=== PATIENT | female | born 1975 | race Caucasian/White ===

== ENCOUNTER 2018-04-04 13:53 | Outpatient (CLI) | payer OTHER, SELFPAY ==
[2018-04-04 14:32] LABS: Abs Immature Grans 0.18 k/cumm (0.0-0.09); Absolute Basophil Count 0.04 k/cumm (0.0-0.2); Absolute Eosinophil Count 0.17 k/cumm (0.0-0.7); Absolute Lymphocyte Count 1.46 k/cumm (1.2-3.4); Absolute Monocyte Count 0.78 k/cumm (0.11-0.7); Absolute Neutrophil Count 7.21 k/cumm (1.2-6.7); Basophils % 0.4; Eosinophils % 1.7; HCT 39.5 % (36.0-46.0); HGB 13.5 g/dL (12.0-15.5); Immature Grans % 1.8; Lymphocytes % 14.8; Mean Corp. HGB Concentration 34.2 g/dL (32.0-36.0); Mean Corpuscular Volume 90.8 fL (80-95); Mean Platelet Volume 8.5 fL (8.0-11.0); Monocytes % 7.9; Neutrophils % 73.4; Platelet Count 259 x1000/uL (130-400); RBC 4.35 m/cumm (4.00-5.20); RBC Distribution Width 13.4 % (11.7-14.6); White Blood Cell Count 9.84 k/cumm (4.4-10.8)
[2018-04-04 15:11] LABS: TSH (W/Ref FT4) 1.32 uIU/mL (0.358-3.74)
[2018-04-06 10:23] LABS: Hepatitis B Surface Ag Negative (NEGAT)
[2018-04-06 10:38] LABS: HIV-1/2 Ag & Ab Screen Negative (NEGAT)
[2018-04-06 12:26] LABS: Varicella IgG Antibody Positive
[2018-04-06 12:29] LABS: Rubella IgG Ab (UVM) Positive; Syphilis Serology (RPR) Negative (Negative)
[2018-04-06 12:39] LABS: Hepatitis C Ab w Rflx HCV PCR Negative (NEGAT)
== END 2018-04-04 14:13 ==
PROVIDERS: Visit Provider Advanced Practice Midwife
DX: Z34.93 Encounter for supervision of normal pregnancy, unspecified, third trimester (principal); Z01.84 Encounter for antibody response examination; Z11.4 Encounter for screening for human immunodeficiency virus [HIV]; Z11.59 Encounter for screening for other viral diseases
CPT/HCPCS: 36415; 86787; 86803; 86850; 86900; 86901; 87340; 87389; 84443; 85025; 86592; 86762

== ENCOUNTER 2018-04-28 00:16 | Outpatient (CLI) | payer OTHER, SELFPAY ==
--- NOTE | 2018-04-28 11:11 | DI.US_ITS ---
Many abnormalities cannot be diagnosed. A normal exam does not exclude a congenital anomaly. Radiology No. LMP: Exam Date: 04/28/18 [facility] wks days on EDC ([facility]) 05/26/18 Confirmed: HISTORY: SIZE LESS THAN DATES, GESTATIONAL DIABETES,[phone] ---- PREDICTED GESTATIONAL AGE NUMBER 36 weeks with a range of 35 week to 37 weeks. 1 Determined by___1STUS___LMP___HISTORY X Info. pertaining to fetus # PLACENTA PRESENTATION Grade I-II Cephalic__X_ Anterior__X_Posterior___ Breech____ Right Left Transverse(head right___ Fundal___Low-lying___Previa___ Transverse(head left___ Varying BIOMETRY AMNIOTIC FLUID BPD: 90 mm 36.2 weeks Normal HC: 330 mm 37.3 weeks AC: 320 mm 35.6 weeks FL: 70 mm 36 weeks AMNIOTIC FLUID INDEX >26 WK CRL: mm weeks Cisterna Magna: mm CI: RUQ:__1.77____LUQ__5.2 Cerebellum: cm EFW: 2853 grams 54 th Percentile RLQ:__1.2____LLQ___3.2____ Total:___11.3 cms Composite AGE= 36.3 wks EDC by US___05/23/18 BIOPHYSICAL PROFILE ANATOMY IDENTIFIED SCORE 0/2 Heart: 4-Chamber___Rate:BPM_140____ LVOT: RVOT: Amniotic Fluid(>2cms)____ Stomach: Kidneys: Respirations (>30 secs) Bladder: Post. Fossa: Body Flex/Extension 3 vessel cord: Ventricles: cord insertion: Lips:____ Extremity Flex/Extension spinal morphology: Nose: Total Score= Palate: NS=not seen OB ultrasound was performed utilizing third trimester protocol. Placenta is anterior with no evidence of placenta previa. There is visually a normal quantity of amniotic fluid and the JAZMIN is 11. biometry is consistent with a gestational age of 36 weeks 3 days and and EDC of 05/23/18. The estimated weight is 2853 grams. The estimated weight is at the 54th percentile for predicted gestational age on the basis of an EDC of . The fetus is in cephalic presentation. cardiac activity is identified at a rate of 140 BPM.
== END 2018-04-28 00:36 ==
PROVIDERS: Visit Provider Advanced Practice Midwife
DX: O26.843 Uterine size-date discrepancy, third trimester (principal); Z36.2 Encounter for other antenatal screening follow-up
CPT/HCPCS: 76816

== ENCOUNTER 2018-04-28 13:46 | Outpatient (CLI) | payer OTHER, SELFPAY | END 2018-04-28 14:06 | PROVIDERS: Visit Provider Advanced Practice Midwife | DX: O09.523 Supervision of elderly multigravida, third trimester (principal); Z3A.36 36 weeks gestation of pregnancy; O24.419 Gestational diabetes mellitus in pregnancy, unspecified control | CPT/HCPCS: 59025 ==

== ENCOUNTER 2018-04-28 16:14 | Outpatient (REF) | payer OTHER, SELFPAY | END 2018-04-28 16:34 | LOC: LBN 16:14 | PROVIDERS: Visit Provider Advanced Practice Midwife | DX: Z34.93 Encounter for supervision of normal pregnancy, unspecified, third trimester (principal); Z36.85 Encounter for antenatal screening for Streptococcus B | CPT/HCPCS: 87081 ==

== ENCOUNTER 2018-05-02 13:43 | Outpatient (CLI) | payer OTHER, SELFPAY | END 2018-05-02 14:03 | PROVIDERS: Visit Provider Advanced Practice Midwife | DX: O24.419 Gestational diabetes mellitus in pregnancy, unspecified control (principal); O09.523 Supervision of elderly multigravida, third trimester; Z3A.36 36 weeks gestation of pregnancy | CPT/HCPCS: 59025 ==

== ENCOUNTER 2018-05-05 13:25 | Outpatient (CLI) | payer OTHER, SELFPAY | END 2018-05-05 13:45 | PROVIDERS: Visit Provider Advanced Practice Midwife | DX: O24.419 Gestational diabetes mellitus in pregnancy, unspecified control (principal); O09.523 Supervision of elderly multigravida, third trimester; Z3A.37 37 weeks gestation of pregnancy | CPT/HCPCS: 59025 ==

== ENCOUNTER 2018-05-09 11:18 | Outpatient (CLI) | payer OTHER, SELFPAY | END 2018-05-09 11:38 | PROVIDERS: Visit Provider Advanced Practice Midwife | DX: O24.419 Gestational diabetes mellitus in pregnancy, unspecified control (principal); O09.523 Supervision of elderly multigravida, third trimester; Z3A.37 37 weeks gestation of pregnancy | CPT/HCPCS: 59025 ==

== ENCOUNTER 2018-05-12 11:44 | Outpatient (CLI) | payer OTHER, SELFPAY | END 2018-05-12 12:04 | PROVIDERS: Visit Provider Advanced Practice Midwife | DX: O24.419 Gestational diabetes mellitus in pregnancy, unspecified control (principal); O09.523 Supervision of elderly multigravida, third trimester; Z3A.38 38 weeks gestation of pregnancy | CPT/HCPCS: 59025 ==

== ENCOUNTER 2018-05-16 12:50 | Outpatient (CLI) | payer OTHER, SELFPAY | END 2018-05-16 13:10 | PROVIDERS: Visit Provider Nurse Practitioner | DX: O24.419 Gestational diabetes mellitus in pregnancy, unspecified control (principal); O09.523 Supervision of elderly multigravida, third trimester; Z3A.38 38 weeks gestation of pregnancy | CPT/HCPCS: 59025 ==

== ENCOUNTER 2018-05-18 16:00 | Inpatient (IN) | payer OTHER, SELFPAY ==
[2018-05-18 18:42] LABS: HCT 40.3 % (36.0-46.0); HGB 13.8 g/dL (12.0-15.5); Mean Corp. HGB Concentration 34.2 g/dL (32.0-36.0); Mean Corpuscular Hemoglobin 31.2 pg (27.0-33.0); Mean Platelet Volume 9.5 fL (8.0-11.0); Platelet Count 239 x1000/uL (130-400); RBC 4.43 m/cumm (4.00-5.20); RBC Distribution Width 13.6 % (11.7-14.6); White Blood Cell Count 11.73 k/cumm (4.4-10.8)
[2018-05-18] MEDS: CLINDAMYCIN 900 MG/50 ML BAG 50 MG IVPB (20:41)
[2018-05-18] MEDS: Normal Saline Flush 10 ML SYR IVP (20:44)
[2018-05-19] MEDS: CLINDAMYCIN 900 MG/50 ML BAG 50 MG IVPB (04:45)
[2018-05-19] MEDS: Normal Saline Flush 10 ML SYR IVP (04:46)
[2018-05-19] MEDS: Lactated Ringers 1,000 ML 125 ML IV (06:32)
[2018-05-20] MEDS: Ibuprofen 600 MG TAB PO (01:21)
[2018-05-20 07:53] LABS: HGB 12.5 g/dL (12.0-15.5); Mean Corp. HGB Concentration 32.9 g/dL (32.0-36.0); Mean Corpuscular Hemoglobin 30.6 pg (27.0-33.0); Mean Corpuscular Volume 93.1 fL (80-95); Mean Platelet Volume 9.4 fL (8.0-11.0); Platelet Count 221 x1000/uL (130-400); RBC 4.08 m/cumm (4.00-5.20); RBC Distribution Width 13.8 % (11.7-14.6); White Blood Cell Count 9.74 k/cumm (4.4-10.8)
== END 2018-05-21 10:05 | disposition home or self-care (01) | DRG 807 ==
PROVIDERS: Admitting Provider Advanced Practice Midwife; PCP Emergency Medicine; Visit Provider Advanced Practice Midwife
DX: O69.81X0 Labor and delivery complicated by cord around neck, without compression, not applicable or unspecified (principal); Z37.0 Single live birth; O24.420 Gestational diabetes mellitus in childbirth, diet controlled; O76 Abnormality in fetal heart rate and rhythm complicating labor and delivery; Z3A.38 38 weeks gestation of pregnancy; O99.824 Streptococcus B carrier state complicating childbirth; Z88.0 Allergy status to penicillin
CPT/HCPCS: 36415; 85027; 86850; 86900; 86901; 59200; J3490

== ENCOUNTER 2018-07-21 18:02 | Outpatient (REF) | payer OTHER, SELFPAY ==
--- NOTE | 2018-07-21 15:45 | PAPFT_PTH ---
PATIENT: Gerda Hobbs LOC: [facility] U#:[id number] AGE/SX: 43/F ROOM: RE07/21/[address]: Claudia Martinez CNM : 1975 BED: DIS: 07/21/2018 SPEC #: [id number] RECD: 07/21/18 18:13 STATUS: DENA RELance #: [id number] JEFFRY: 07/21/18 15:[address]: Claudia Martinez DEPT: [facility] Cytology RECD BY: Halley Graham ENTERED: 07/21/18 18:13 SP TYPE: PAPFT OT DR: None Tissues: 1 - CX/ENDOCX FOR PAP SMEARS Procedures: PAP THIN PREP/U[facility] Screening HPV DNA PROBE Comments: [id number]
== END 2018-07-21 18:22 ==
LOC: LBN 18:02
PROVIDERS: Visit Provider Nurse Practitioner
DX: Z12.4 Encounter for screening for malignant neoplasm of cervix (principal); Z11.51 Encounter for screening for human papillomavirus (HPV)
CPT/HCPCS: 88142; 87624

== ENCOUNTER 2021-04-14 16:10 | Emergency (ER) | payer OTHER, SELFPAY ==
[2021-04-14] VITALS (43 sets, daily range): BP systolic 105–222; BP diastolic 51–207; PULSE 85–177; RESP 0–28; TEMP 36.6; O2SAT 97–100
--- NOTE | 2021-04-14 16:00 | RT.EKG_ITS ---
APPROVED REPORT Exam: Resting ECG Reason for Exam: dizzy Patient Location: E HR:131 bpm ECG Measurements Heart Rate 131 AXIS OH 138 P 76 QRSd 117 QRS 39 QT 313 T 19 QTc 461 Conclusion Sinus tachycardia...rate> 99 Incomplete right bundle branch block...QRSd >112, terminal axis(90,270). Sinus. No STEMI. I have reviewed and interpreted ECG and agree with software generated interpretation.
--- NOTE | 2021-04-14 16:41 | NUR.NOTE ---
Nursing Note: Son asked to tell the provider that the patient cannot feel below the area of injury, when her vital signs change her B/P gets high and her heart rate increases. Usually the problem is her urinary or bowels. Kylie Medrano
--- NOTE | 2021-04-14 16:52 | W.ED.GENAD ---
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 04/14/21 16:25 Respiratory Effort Non-Labored 04/14/21 16:28 Blood Pressure 142/85 H 04/14/21 16:25 Blood Pressure Position Supine 04/14/21 16:25 Pulse Oximetry 99 04/14/21 16:25 Oxygen Delivery Method Room Air 04/14/21 16:25 Oxygen Flow Rate 0 04/14/21 16:25 Pain Level 0 04/14/21 16:25 Lab/Test Results Lab/Test Results: 04/14/21 16:28 Blood Blood Culture - Pending 04/14/21 16:28 Blood Blood Culture - Pending
--- NOTE | 2021-04-14 17:00 | DI.CT_ITS ---
Exam(s) CT BRAIN NECK CTA EXAM: CT BRAIN NECK CTA CLINICAL HISTORY: dizziness, hypertensive, r/o acute cva. TECHNIQUE: Imaging Protocol: Axial CT angiography was performed with multi-slice acquisition and mu lti-planar and/or 3D reconstructions. CONTRAST MATERIAL: Intravenous: Omnipaque 350 Contrast volume:structured data in ml COMPARISON: No exams were available for comparison FINDINGS: CTA Neck W: Aortic arch anatomy: There is no evidence of significant stenosis at the origin of the great vessels off the aortic arch. Both common carotid arteries ascend with normal luminal diameters and there is no evidence of significant atherosclerotic disease nor narrowing at the carotid bifurcations and prox imal internal carotid arteries on both sides and both internal carotid arteries exhibit normal diamet ers in the upper neck-skull base. Posterior circulation: Both vertebral arteries originated conventional fashion off of the subclavian arteries and there is n o evidence of significant stenosis at their origins nor within the subclavian arteries. Both vertebr al arteries ascend normal equal luminal diameters in the foramen transversarium, with no evidence of intraluminal thrombus nor dissection of these vessels evident. At the skull base both vertebral randell weston are somewhat thin but both contribute to the formation of the basilar artery. CTA Brain W: Anterior circulation: Both internal carotid arteries are patent in the skull base-carotid canals as well as within the cave rnous sinuses and there is no significant stenosis at the supraclinoid aspects. A1 segments are palomino nt as are the anterior cerebral arteries. There is no evidence of aneurysm at the level of the anter ior communicating artery. Both middle cerebral arteries appear patent. Posterior circulation: Basilar artery is formed by both vertebral arteries at the skull base. Distally gives off superior c erebellar arteries and above this level terminates as posterior cerebral arteries. These appear palomino nt. CT BRAIN: There is no evidence of intracranial hemorrhage, mass effect, or shift of midline structures. There are no extra-axial fluid collections. Ventricles are not enlarged or shifted. There are no ring enh ancing lesions in the brain and no abnormal meningeal enhancement. Mild mucosal thickening is noted in the right sphenoid sinus. Remainder of the paranasal sinuses are clear. IMPRESSION: 1. No evidence of significant stenosis nor dissection of the carotid and vertebral arteries within th e neck 2. Patent intracranial arteries. No evidence of obvious significant stenosis nor occlusion of the i ntracranial arteries and no aneurysms evident. 3. No ring enhancing lesions in the brain and no abnormal meningeal enhancement. Some mucosal thickening in the right sphenoid sinus is noted. RADIATION DOSE DELIVERED: 2,037.71mGy.cm Total DLP DATA REPOSITORY: All CT scans at this facility are submitted to the National Radiology Data Registry (NRDR) Dose Index Registry (DIR) with the [employer] (ACR). RADIATION OPTIMIZATION: All CT scans at this facility use at least one of these dose optimization te chniques: automated exposure control; mA and/or kV adjustment per patient size (includes targeted exa ms where dose is matched to clinical indication); or iterative reconstruction.
[2021-04-14 17:12] LABS: Lactate 1.5 mmol/L (0.6-1.4)
[2021-04-14 17:13] LABS: Absolute Basophil Count 0.06 10^3/uL (0.0-0.2); Absolute Eosinophil Count 0.22 10^3/uL (0.0-0.7); Absolute Lymphocyte Count 1.63 10^3/uL (1.2-3.4); Absolute Monocyte Count 0.74 10^3/uL (0.1-0.8); Absolute Neutrophil Count 6.33 10^3/uL (1.2-6.7); Basophils % 0.7; Eosinophils % 2.4; HCT 40.4 % (36.0-46.0); Immature Grans % 1.1; MCH 30.4 pg (27.0-33.0); MCHC 32.2 % (32.0-36.0); MCV 94.4 fL (80-95); MPV 8.5 fL (8.0-11.0); Monocytes % 8.1; Neutrophils % 69.7; Nucleated RBC 0 %; Platelet Count 281 10^3/uL (130-400); RBC 4.28 10^6/uL (3.93-5.22); RDW 12.9 % (11.7-14.6); RDW-SD 44.9 fL; WBC 9.08 10^3/uL (4.4-10.8)
[2021-04-14 17:32] LABS: ALT 78 U/L (14-59); AST 26 U/L (15-37); Albumin 4.1 g/dL (3.4-5.0); Alkaline Phosphatase 98 U/L (46-116); Anion Gap 7.2 mmol/L (3-11); BUN 7 mg/dL (7-18); Bilirubin, Total 0.2 mg/dL (0.2-1.0); CO2 30.8 mmol/L (21.0-32.0); CREATININE 0.5 mg/dL (0.55-1.02); Calcium 9.2 mg/dL (8.5-10.1); Chloride 105 mmol/L (98-107); Glucose 114 mg/dL (74-106); Magnesium 1.9 mg/dL (1.8-2.4); Potassium 3.7 mmol/L (3.5-5.1); Sodium 143 mmol/L (136-145); Total Protein 7.9 g/dL (6.4-8.2)
[2021-04-14 17:35] LABS: Troponin I < 0.05 ng/mL (<0.06)
[2021-04-14] MEDS: Normal Saline 1,000 ML 1000 ML IV ×2 (18:00→20:01)
--- NOTE | 2021-04-14 18:00 | DI.CT_ITS ---
Exam(s) CT CHEST PE ABD PELVIS W EXAM: CT CHEST PE ABD PELVIS W CLINICAL HISTORY: dizziness, tachycardia, paraplegic. TECHNIQUE: Imaging Protocol: Axial CT angiography was performed with multi-slice acquisition and m ulti-planar and/or 3D reconstructions. CONTRAST MATERIAL: Intravenous: Omnipaque 350 Contrast volume:100 ml Oral: None COMPARISON: CT CT BRAIN NECK CTA from 04/14/2021 FINDINGS: CHEST: PULMONARY ARTERIES: There are no intra-arterial filling defects to suggest the presence of acute pulm onary emboli. LUNGS: Mild infiltrate left lower lobe posterior basal segment.. There are no pleural effusions. MEDIASTINUM: There is no hilar nor mediastinal adenopathy. CARDIAC: Heart size is normal. There is no pericardial effusion. There is no significant shift of t he interventricular septum.Caliber of the thoracic aorta is within normal limits. OSSEOUS: Multilevel fusion hardware evident. This extends from T3 T8, inclusive. There is a almas dolly deformity of T6 noted. Rods are secured by a multilevel bilateral intrapedicular screws.. ABDOMEN: There is no ascites. LIVER: Liver is hypodense implying steatosis. There no discrete focal hepatic lesions identified. GALLBLADDER/BILIARY: No obvious gallbladder pathology. CBD is not dilated. PANCREAS: No evidence of pancreatic mass nor dilatation of the pancreatic duct. SPLEEN: Spleen size slightly prominent. No intrasplenic masses splenic and portal veins are patent. ADRENALS: There are no significant adrenal masses. KIDNEYS:There is a benign cyst in the lateral cortex of the right kidney noted. This measures 12 x 1 0 millimeters. No calculi nor hydronephrosis. No solid renal masses. ABDOMINAL AORTA: Abdominal aorta is not enlarged. LYMPH NODES: There is no retroperitoneal or para-aortic adenopathy. ABDOMINAL WALL/GI: No evidence of significant anterior abdominal wall hernia. No bowel obstruction. PELVIS: LYMPH NODES: There is no intrapelvic nor inguinal adenopathy. GI: No evidence of appendicitis.No evidence of sigmoid diverticulitis. URINARY BLADDER: Contains Snow catheter REPRODUCTIVE: Uterus and adnexal regions appear age-appropriate. No free fluid. OSSEOUS: No significant osseous lesions. IMPRESSION: 1. No evidence of acute pulmonary emboli nor pulmonary infarction. 2. There is significant infiltrate in the left lower lobe posterior and lateral basal segments, pleur al based. No pleural effusions. Milder increased markings are noted in the basal segments of the ri ght lung. Also no right pleural effusion. No intrathoracic adenopathy. 3. Fusion rods T3-T8, inclusive. Compression deformity T6 noted. 4. Hepatic steatosis. Mild splenomegaly. 5. Snow catheter in the urinary bladder. No abnormal adnexal masses. No free fluid in the pelvis. RADIATION DOSE DELIVERED: 1,512.98mGy.cm Total DLP DATA REPOSITORY: All CT scans at this facility are submitted to the National Radiology Data Registry (NRDR) Dose Index Registry (DIR) with the [employer] (ACR). RADIATION OPTIMIZATION: All CT scans at this facility use at least one of these dose optimization te chniques: automated exposure control; mA and/or kV adjustment per patient size (includes targeted exa ms where dose is matched to clinical indication); or iterative reconstruction.
[2021-04-14 18:08] LABS: Bilirubin Negative (Negative); Blood Trace-intact (Negative); Clarity Sl Cloudy (Clear); Glucose Negative (Negative); Ketones Negative (Negative); Leukocyte Esterase Moderate (Negative); Nitrite Positive (Negative); Urobilinogen 0.2 EU/dL (Up TO 0.2); pH 6.5 (5-8)
[2021-04-14 18:17] LABS: Bacteria Packed HPF (Negative); C & S Indicated? Yes; Crystals Negative HPF (Negative); Epithelial Cells Few HPF (Negative); Mucus Negative (Negative); RBC 0-2 HPF (0-2); WBC >50 HPF (0-5)
[2021-04-14] MEDS: Omnipaque 350 MG/ML 100 ML BTL IJ ×2 (19:01→19:02)
--- NOTE | 2021-04-14 19:37 | DI.VRAD_ITS ---
PROCEDURE INFORMATION: Exam: CT Angiography Head With Contrast, Arteriography Exam date and time: 04/14/2021 5:13 PM Age: 46 years old Clinical indication: Dizziness and giddiness and other: Hypertensive; Prior surgery; Patient HX: Dizziness, hypertensive; Additional info: R/O acute CVA TECHNIQUE: Imaging protocol: Computed tomography angiography of the head with contrast. Exam focused on the arteries. 3D rendering (Not supervised by radiologist): MIP and/or 3D reconstructed images were created by the technologist. COMPARISON: No relevant prior studies available. FINDINGS: ANTERIOR CIRCULATION: Right internal carotid artery: Intracranial segment is patent with no significant stenosis. No aneurysm. Right middle cerebral artery: No occlusion or significant stenosis. No aneurysm. Right anterior cerebral artery: No occlusion or significant stenosis. No aneurysm. Left internal carotid artery: Intracranial segment is patent with no significant stenosis. No aneurysm. Left middle cerebral artery: No occlusion or significant stenosis. No aneurysm. Left anterior cerebral artery: No occlusion or significant stenosis. No aneurysm. POSTERIOR CIRCULATION: Right vertebral artery: No occlusion or significant stenosis. No aneurysm. Left vertebral artery: No occlusion or significant stenosis. No aneurysm. Basilar artery: No occlusion or significant stenosis. No aneurysm. Right posterior cerebral artery: No occlusion or significant stenosis. No aneurysm. Left posterior cerebral artery: No occlusion or significant stenosis. No aneurysm. Brain: The brain parenchyma is normal appearance. No intracranial hemorrhage. No midline shift. No loss of rivera-white differentiation to suggest an acute infarct. Cerebral ventricles: No hydrocephalus. Bones/joints: Unremarkable. No acute fracture. Mastoid air cells: The mastoid air cells are well aerated. Soft tissues: Unremarkable. Paranasal sinuses: A small fluid level is seen within the right sphenoid sinus. The remaining paranasal sinuses are well aerated. Other findings: The images are mildly motion degraded. IMPRESSION: 1. Mildly motion degraded exam. 2. No gross evidence for large vessel stenosis or occlusion within the intracranial arteries, given limitations of motion degradation. 3. No evidence for and acute intracranial process. 4. Mild right sphenoid sinus disease. PROCEDURE INFORMATION: Exam: CT Angiography Neck With Contrast Exam date and time: 04/14/2021 5:13 PM Age: 46 years old Clinical indication: Dizziness and giddiness and other: Hypertensive; Prior surgery; Patient HX: Dizziness, hypertensive; Additional info: R/O acute CVA TECHNIQUE: Imaging protocol: Computed tomography angiography of the neck with contrast. 3D rendering (Not supervised by radiologist): MIP and/or 3D reconstructed images were created by the technologist. COMPARISON: No relevant prior studies available. FINDINGS: Right common carotid artery: No stenosis. No dissection or occlusion. Right internal carotid artery: No stenosis of the extracranial segment. No dissection or occlusion. Right external carotid artery: No occlusion or stenosis of the origin. Left common carotid artery: No stenosis. No dissection or occlusion. Left internal carotid artery: No stenosis of the extracranial segment. No dissection or occlusion. Left external carotid artery: No occlusion or stenosis of the origin. Right vertebral artery: No stenosis. No dissection or occlusion. Left vertebral artery: No stenosis. No dissection or occlusion. Aorta: The great vessels opacify normally with contrast without aneurysm, dissection or occlusion. Soft tissues: Normal. No significant soft tissue swelling. Bones/joints: No acute fracture. Postoperative changes of posterior fusion are partially imaged within the upper thoracic spine at T3 through T5. The entire postoperative changes are not within the imaged field of view. Lungs: The lung apices are well aerated. IMPRESSION: No stenosis, dissection or occlusion within the extracranial arteries. REFERENCES: NASCET CRITERIA. The degree of internal carotid artery stenosis is based on NASCET criteria. Normal is no stenosis. Mild is less than 50% stenosis. Moderate is 50-69% stenosis. Severe is 70% to 99% stenosis. Total occlusion is no detectable patent lumen. Dictated and Authenticated by: Carlene Brunson MD. Ordering:KHADAR Medrano MD
--- NOTE | 2021-04-14 19:50 | DI.VRAD_ITS ---
PROCEDURE INFORMATION: Exam: CTA Chest With Contrast Exam date and time: 04/14/2021 6:46 PM Age: 46 years old Clinical indication: Prior surgery; Patient HX: Dizziness, tachycardia, paraplegic; Additional info: R/O pneumonia, pe TECHNIQUE: Imaging protocol: Computed tomographic angiography of the chest with contrast. 3D rendering (Not supervised by radiologist): MIP and/or 3D reconstructed images were created by the technologist. COMPARISON: [facility] OB JAZMIN weight 04/28/2018 8:22 PM FINDINGS: Pulmonary arteries: The pulmonary arteries opacify normally with contrast without evidence for a pulmonary embolus. Aorta: The thoracic aorta opacifies normally with contrast without aneurysm or dissection. Lungs: Minimal atelectasis or infiltrate within the lower lobes. Superimposed bandlike atelectasis or scarring within the bilateral lower lobes. No pleural effusion or pneumothorax. Pleural spaces: See Lungs finding. Heart: The heart is upper limits of normal in size. No pericardial effusion. No evidence for right heart strain. RV/LV ratio 0.7. Mediastinal space: The esophagus is slightly dilated and patulous. Mild wall thickening within the lower esophagus. Lymph nodes: Unremarkable. No enlarged lymph nodes. Bones/joints: Postoperative changes of posterior fusion are seen beginning at T3 through T8 with posterior rods and pedicle screws. A chronic T6 compression fracture is seen. Soft tissues: Unremarkable. Other findings: The images are slightly motion degraded. IMPRESSION: 1. No evidence for a pulmonary embolism. No thoracic aortic aneurysm or dissection. No evidence for right heart strain. 2. Mild atelectasis or infiltrate within the lower lobes. 3. Probable distal esophagitis. PROCEDURE INFORMATION: Exam: CT Abdomen And Pelvis With Contrast Exam date and time: 04/14/2021 6:46 PM Age: 46 years old Clinical indication: Prior surgery; Patient HX: Dizziness, tachycardia, paraplegic; Additional info: R/O pneumonia, pe TECHNIQUE: Imaging protocol: Computed tomography of the abdomen and pelvis with contrast. COMPARISON: [facility] JAZ[facility] weight 04/28/2018 8:22 PM FINDINGS: Tubes, catheters and devices: A catheter is seen within the urinary bladder. Liver: The liver is mildly enlarged and fatty infiltrated. Gallbladder and bile ducts: The gallbladder is contracted but otherwise normal appearance. Pancreas: The pancreas is normal appearance. Spleen: The spleen is upper limits of normal in size. Adrenal glands: The bilateral adrenal glands are normal appearance. Kidneys and ureters: A 10 mm cyst is seen within the interpolar region of the right kidney. The bilateral kidneys are otherwise normal appearance. No hydroureteronephrosis. Stomach and bowel: The stomach is normal appearance. The small bowel is nondilated with mild fecalization of the distal small bowel. A moderate amount of stool and air is seen throughout the colon to the level of the rectum. No bowel obstruction. Appendix: No evidence of appendicitis. Intraperitoneal space: No free fluid, free air or abscess. Mild stranding is seen within the greater omentum without a discrete nodule. Vasculature: The abdominal aorta is normal in caliber without aneurysm. Lymph nodes: No lymphadenopathy within the abdomen and pelvis. Urinary bladder: The urinary bladder contains a small bleb of air. The urinary bladder is otherwise normal appearance. Reproductive: The uterus is normal appearance. No adnexal mass. Bones/joints: Mild lumbar spondylosis. No acute fracture. Soft tissues: Unremarkable. IMPRESSION: 1. Mild stranding within the greater omentum without a discrete nodule. This may be secondary to underlying liver disease. Consider a follow-up CT study in 3-6 months to ensure stability. 2. Constipation without bowel obstruction. 3. Mildly enlarged, fatty infiltrated liver. 4. Simple appearing right renal cyst. Dictated and Authenticated by: Carlene Brunson MD. Ordering:KHADAR Medrano MD
[2021-04-14] MEDS: levoFLOXacin 500 MG, levoFLOXacin 250 MG 750 MG PO (20:50)
== END 2021-04-14 21:35 | disposition home or self-care (01) ==
PROVIDERS: Emergency Provider Physician Assistant
DX: N39.0 Urinary tract infection, site not specified (principal); R05.1 Acute cough; R42 Dizziness and giddiness; R91.8 Other nonspecific abnormal finding of lung field; G82.20 Paraplegia, unspecified; Z99.3 Dependence on wheelchair
CPT/HCPCS: 36415; 70496; 70498; 71275; 74177; 80053; 87040; 87077; 93005; 96360; 96361; 99285; 81003; 81015; 83605; 83735; 84484; 85025; 87086; 87186; 93010; J3490

== ENCOUNTER 2021-05-15 18:04 | Outpatient (REF) | payer OTHER, SELFPAY | END 2021-05-15 18:05 | disposition home or self-care (01) | LOC: LBN 18:04 | PROVIDERS: Visit Provider Urology | DX: N31.9 Neuromuscular dysfunction of bladder, unspecified (principal); R82.998 Other abnormal findings in urine | CPT/HCPCS: 87077; 87086; 87186 ==

== ENCOUNTER 2021-10-21 10:13 | Outpatient (REF) | payer OTHER, SELFPAY ==
--- NOTE | 2021-10-21 09:30 | PAPFT_PTH ---
PATIENT: Gerda Hobbs LOC: [facility] U#:[id number] AGE/SX: 46/F ROOM: RE10/21/[address]: Samra Holm APRN : 1975 BED: DIS: 10/21/2021 SPEC #: [id number] RECD: 10/22/21 12:50 STATUS: DENA PANDEY #: [id number] JEFFRY: 10/21/21 09:[address]: Samra Holm DEPT: [facility] Cytology RECD BY: Halley Graham Tissues: 1 - CX/ENDOCX FOR PAP SMEARS Procedures: PAP THIN PREP/UVM Screening HPV DNA PROBE Comments: [id number]
== END 2021-10-21 10:14 | disposition home or self-care (01) ==
LOC: LBN 10:13
DX: Z12.4 Encounter for screening for malignant neoplasm of cervix (principal); Z11.51 Encounter for screening for human papillomavirus (HPV)
CPT/HCPCS: 88142; 87624

== ENCOUNTER 2021-12-28 17:22 | Emergency (ER) | payer OTHER, MEDICAID, SELFPAY ==
[2021-12-28 17:29] VITALS: BP 115/73; PULSE 126; RESP 16; TEMP 37.1; O2SAT 96
--- OUTSIDE RECORDS SUMMARY | 2021-12-28 17:36 | XMS_ITS | Encounter Summary ---
:1975 Author Organization [facility] [place] [address] Care Team Providers Name Role Phone None Primary Care Provider Unavailable Encounter Details Date Type Department Care Team Description 10/17/2021 Telephone Urology at [facility] Julita Hollingsworth, [facility] [place] [address] [facility] [phone] UROLOGY DEPT. [place], [place] [address] (Wo rk) Social History Tobacco Use Types Packs/Day Years Used Date Never Smoker Smokeless Tobacco: Never Used Sex Assigned at Date Recorded Not on file documented as of this encounter Miscellaneous Notes Telephone Encounter - Teresa York - 10/17/2021 8:43 AM EDT PHONE: [phone] Pt calls stating that she needed prior auth for the myrbetriq and her PCP attempted to get it but itwas declined so her primary switched her to solifenocin (sp). She's wondering what Dr. Hollingsworth wouldsuggest? If she thinks myrbetriq would be best she can submit a letter of medical necessity to over t urn the medical decision. OR there are some other generic medications that her insurance suggested -gemtisa or toviaz. The number for the prior auth is [phone] Pt has changed pharmacy to [facility] in [place], [place] Can leave a message on the pt's phone number if she doesn't answer. documented in this encounter Plan of Treatment Not on filedocumented as of this encounter Visit Diagnoses Not on filedocumented in this encounter Care Teams Gambling Floor Supervisor Relationship Specialty Start Date End Date None PCP - General 02/11/20 None documented as of this encounter
--- OUTSIDE RECORDS SUMMARY | 2021-12-28 17:36 | XMS_ITS | Encounter Summary ---
:1975 Author Organization [facility] [place] [address] Care Team Providers Name Role Phone None Primary Care Provider Unavailable Encounter Details Date Type Department Care Team Description 02/11/2020 [facility] [place] [address] [facility] [phone] [place], [place] [address] (Wo rk) Social History Tobacco Use Types Packs/Day Years Used Date Never Assessed Sex Assigned at Date Recorded Not on file documented as of this encounter Medications at Time of Discharge Medication Sig Dispensed Refills Start Date End Date EPINEPHrine 0.3 mg/0.3 mL Inject into the 0 04/04 Auto-Injector muscle. documented as of this encounter Plan of Treatment Not on filedocumented as of this encounter Visit Diagnoses Not on filedocumented in this encounter Care Teams Loom Setter Fourdrinier Relationship Specialty Start Date End Date None PCP - General 02/11/20 None documented as of this encounter
--- OUTSIDE RECORDS SUMMARY | 2021-12-28 17:36 | XMS_ITS | Encounter Summary ---
:1975 Author Organization [facility] Address [address] [address] Care Team Providers Name Role Phone None Primary Care Provider Unavailable Encounter Details Date Type Department Care Team Description 04/11/2021 Telephone Urology at [facility] Julita Hollingsworth, [facility] [place] [address] [facility] [phone] UROLOG[address] DEPT. [place], [place] [address] (Wo rk) Social History Tobacco Use Types Packs/Day Years Used Date Never Smoker Sex Assigned at Date Recorded Not on file documented as of this encounter Miscellaneous Notes Telephone Encounter - Nabor Mittal - 04/11/2021 12:37 PM EDT Patient calling, wants to know if it is possible to get botox set up prior to having the UDS since the testing is going out so far. She is also wondering if we can send a prescription of methenamine hippurate 1g twice a day to [facility] in [facility]. PHONE: [phone] documented in this encounter Plan of Treatment Not on filedocumented as of this encounter Visit Diagnoses Not on filedocumented in this encounter Care Teams Copper Flotation Operator Relationship Specialty Start Date End Date None PCP - General 02/11/20 None documented as of this encounter
--- OUTSIDE RECORDS SUMMARY | 2021-12-28 17:36 | XMS_ITS | Encounter Summary ---
:1975 Author Organization [facility] [place] [address] Care Team Providers Name Role Phone None Primary Care Provider Unavailable Encounter Details Date Type Department Care Team Description 11/27/2021 Refill Urology at [facility] [place] [place] Julita Hollingsworth MD [facility] [place] [address] UROLOGY DEPT. [phone] [place], [place] [address] (Wo rk) Social History Tobacco Use Types Packs/Day Years Used Date Never Smoker Smokeless Tobacco: Never Used Sex Assigned at Date Recorded Not on file documented as of this encounter Miscellaneous Notes Addendum Note - Esperanza Marley LPN - 12/10/2021 1:52 PM EDT Addended by: ESPERANZA MARLEY on: 12/10/2021 01:52 PM Modules accepted: Orders Telephone Encounter - Esperanza Marley LPN - 12/10/2021 1:50 PM EDT PA for mirabegron denied, spoke with patient who is agreeable to try Gemtesa, which is on patients formulary. Will pend order and forward to Dr. Hollingsworth. Telephone Encounter - Esperanza Marley LPN - 12/09/2021 2:03 PM EDT Prior authorization for mirabegron is pending appeal. Patient is currently on oxybutynin which is not effectively controlling symptoms, patients primary care physician added solifenicin to the prescribed oxybutnynin because mirabegron was not covered by her insurance, the solfenacin was not effective,patient is currently experiencing worsening incontinence as she has only been taking the oxybutynin.Will follow up with patient once appeal defeminization is finalized. Patient notified. Telephone Encounter - Nabor Mittal - 12/09/2021 9:35 AM EDT Patient calling again, looking to get an update as to what is going on and if she can get the letterof necessity for the mirabegron so her insurance will cover it. PHONE: [phone] Telephone Encounter - Nabor Mittal - 11/27/2021 8:53 AM EDT Patient calling, looking to see if we can just go right to the letter of necessity for the mirabegron as they did a prior auth from her regular doctor and it was denied a few weeks ago. PHONE: [phone] documented in this encounter Plan of Treatment Not on filedocumented as of this encounter Visit Diagnoses Not on filedocumented in this encounter Care Teams Stretcher Leveler Operator Helper Relationship Specialty Start Date End Date None PCP - General 02/11/20 None documented as of this encounter
--- OUTSIDE RECORDS SUMMARY | 2021-12-28 17:36 | XMS_ITS | Encounter Summary ---
:1975 Author Organization [facility] [place] [address] Care Team Providers Name Role Phone None Primary Care Provider Unavailable Encounter Details Date Type Department Care Team Description 04/11/2021 Orders Only Urology [place] [facility] [place]ita Hollingsworth Neurogenic bladder [facility] MD Christiana [facility] [place] [address] UROLOGY DEPT. [phone] [place], [place] [address] (Wo rk) Social History Tobacco Use Types Packs/Day Years Used Date Never Smoker Sex Assigned at Date Recorded Not on file documented as of this encounter Progress Notes Julita Hollingsworth MD - 04/11/2021 5:11 PM EDT Patient called with questions about if she did have Botox before her urodynamics. She has a neurogenic bladder and had wanted to get a baseline study on her. She did have a prior study done at [facility] when her Snow catheter was still in place. Unfortunately she is booked out to July for her urodynamics. She is increasingly bothered by her incontinence between her cathing. I have told her I willgo ahead and book her for Botox. Ideally I would like to do her in the [facility]. She is a paraplegic so hopefully this will not be an issue. She will need 200 units of Botox. We will leave her booked for her urodynamics in July as planned. I have also sent a renewal in for her methenamine. documented in this encounter Plan of Treatment Not on filedocumented as of this encounter Visit Diagnoses Diagnosis Neurogenic bladder Neurogenic bladder, NOS documented in this encounter Care Teams Saw Tailer Relationship Specialty Start Date End Date None PCP - General 02/11/20 None documented as of this encounter
--- OUTSIDE RECORDS SUMMARY | 2021-12-28 17:36 | XMS_ITS | Encounter Summary ---
:1975 Author Organization [facility] Address [address] [place] [address] Care Team Providers Name Role Phone None Primary Care Provider Unavailable Encounter Details Date Type Department Care Team Description 11/19/2021 Telephone Urology at [place] Julita Hollingsworth, [facility] [place] [address] [facility] [phone] UROLOGY DEPT. [place], [place] [address] (Wo rk) Social History Tobacco Use Types Packs/Day Years Used Date Never Smoker Smokeless Tobacco: Never Used Sex Assigned at Date Recorded Not on file documented as of this encounter Miscellaneous Notes Telephone Encounter - Esperanza Marley LPN - 11/25/2021 12:39 PM EDT Prior authorization request submitted for mirabegron, determination pending. Telephone Encounter - Esperanza Marley LPN - 11/19/2021 11:45 AM EDT Per last office visit and UDS with Dr. Hollingsworth, the plan was to continue the oxybutynin and mirabegron, patient called previously stating that she switched pharmacies to [facility], will renew RX and initiate prior authorization. Telephone Encounter - Ade Vega - 11/19/2021 10:38 AM EDT Patient calling again, says she is having really bad incontinence and she would like to discuss going back on myrbetric but she would need a letter written by Dr. Hollingsworth stating it's a medical necessity for it to be covered by her insurance. PHONE: [phone] documented in this encounter Plan of Treatment Not on filedocumented as of this encounter Visit Diagnoses Not on filedocumented in this encounter Care Teams Map Clerk Relationship Specialty Start Date End Date None PCP - General 02/11/20 None documented as of this encounter
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
--- OUTSIDE RECORDS SUMMARY | 2021-12-28 17:36 | XMS_ITS | Encounter Summary ---
:1975 Author Organization [facility] [place] [address] Care Team Providers Name Role Phone None Primary Care Provider Unavailable Encounter Details Date Type Department Care Team Description 07/15/2021 Procedure visit Urology at [facility] Neurogenic bladder [facility] [place] [address] Social History Tobacco Use Types Packs/Day Years Used Date Never Smoker Smokeless Tobacco: Never Used Sex Assigned at Date Recorded Not on file documented as of this encounter Last Filed Vital Signs Vital Sign Reading Time Taken Comments Blood Pressure 116/63 07/15/2021 11:21 AM EST Pulse 82 07/15/2021 11:21 AM EST Temperature - - Respiratory Rate - - Oxygen Saturation - - Inhaled Oxygen Concentration - - Weight - - Height - - Body Mass Index - - documented in this encounter Progress Notes Julita Hollingsworth MD - 07/15/2021 11:00 AM EST Gerda Morales IS A female 46 y.o. who is here for Urodynamics. HPI Ms. Morales has a history of a neurogenic bladder . This is her first study here. Objective: Well looking female in no acute distress. PVR: 350 cc when the uds catheter was inserted. Dipstick Urinalysis: Negative. Urodynamics/Injection of Contrast The patient was filled at a rate of 50 mL/min via a 10 Fr urodynamic catheter with an abdominal catheter in place and EMG patches. Contrast was used 250 ml of iohexol (omnipaque) 350mg/ml in 750 of sterile water. In this patient we used: Solution Ml of contrast 1000 250 500 125 - bill for 130 ml 400 100 300 75 - bill for 65 ml 250 62.5 -bill for 60 ml 200 50 100 25 50 12.5 Cystogram: MGy: 6.03; fluoro time: 0.3 minutes. Indications: neurogenic bladder Findings: Adequate views of the bladder at rest, during filing, at capacity and after emptying were obtained with floroscopy. Imaging revealed a smooth bladder with the bladder neck closed at rest. There was not reflux. Interpretation: normal cystogram I supervised the above listed procedure and interpreted the findings. Brush Machine Setter imaging was saved. Complex Cystometrogram: The detrusor (bladder minus abdominal) pressure was stable to 367 ml. The pdet gabriel to 52 cm H2O andshe leaked. Compliance was normall. Filling sensation was normal. She was then emptied for 475 ml. Bladder capacity: >500 ml. VLPP:not done Pressure -Flow: not done EMG: The pelvic floor was appropriately relaxed during filling I was present for the pertinent portions of the urodynamics. I reviewed the results with the patientfollowing the procedure. I reviewed and edited the final report which is in the chart. Impression: Neurogenic bladder - stable to 475 ml . Plan: continue oxybutynin and mirabegron Continue to do CIC to keep bladder volume under 500 ml. documented in this encounter Plan of Treatment Not on filedocumented as of this encounter Procedures Procedure Name Priority Date/Time Associated Diagnosis Comme nts UROLOGY SCAN 07/15/2021 12:00 AM EST documented in this encounter Results SCAN DOC: UROLOGY (07/15/2021 12:00 AM EST) Narrative This result has an attachment that is no t available. Unknown MEDIA MGR SCAN EXT ORDR/RSLT documented in this encounter Visit Diagnoses Diagnosis Neurogenic bladder Neurogenic bladder, NOS documented in this encounter Administered Medications Inactive Administered Medications - up to 3 most recent administrations Medication Order MAR Action Action Date Dose Rate Site iohexoL (Omnipaque) (350 mg/mL) Given 07/15/2021 11:00 AM EST 10 0 mLs solution 100 mL 100 mL, Other, ONCE PRN, 1 dose, Starting on Wed07/15/21 at 1840, Until Wed07/15/21 at 1100, Per Protocol, Warning Vesicant/Irritant Medication , Routine documented in this encounter Care Teams Manager Hospitality Relationship Specialty Start Date End Date None PCP - General 02/11/20 None documented as of this encounter
--- OUTSIDE RECORDS SUMMARY | 2021-12-28 17:36 | XMS_ITS | Encounter Summary ---
:1975 Author Organization [facility] [place] [address] Care Team Providers Name Role Phone None Primary Care Provider Unavailable Encounter Details Date Type Department Care Team Description 05/17/2021 Telephone Urology Marv Chacko MD [facility] [place] [address] UROLOGY DEPT [phone] [place], [place] [address] (Wo rk) Social History Tobacco Use Types Packs/Day Years Used Date Never Smoker Sex Assigned at Date Recorded Not on file documented as of this encounter Miscellaneous Notes Telephone Encounter - Marv Chacko MD - 05/17/2021 10:[address] [facility]. UCx results will not be available until Wednesday morning per their labor relations manager. Marv Chacko MD, MPH Urology, PGY-5 Personal Pager #[phone] 05/17/2021 documented in this encounter Plan of Treatment Not on filedocumented as of this encounter Visit Diagnoses Not on filedocumented in this encounter Care Teams Helmet Binder Relationship Specialty Start Date End Date None PCP - General 02/11/20 None documented as of this encounter
--- OUTSIDE RECORDS SUMMARY | 2021-12-28 17:37 | XMS_ITS | Encounter Summary ---
:1975 Author Organization [facility] Address [address] [place] [address] Care Team Providers Name Role Phone Pcp, No Unavailable Unavailable Telly Dietrich DO Primary Care Provider Unavailable Reason for Visit Reason Onset Date Comments Management Of Care 05/16/2020 Encounter Details Date Type Department Care Team Description 05/16/2020 Telephone [facility] NE[facility]O SP [address] [facility] Masoud Miller, Management Of Care [address] [address] 1[address] Floor [phone] [place] [address] (Wo rk) Social History Tobacco Use Types Packs/Day Years Used Date Never Smoker Smokeless Tobacco: Never Used Alcohol Use Standard Drinks/Week Comments Not Currently 0 (1 standard drink = 0.6 oz pure alcoho l) Substance Use Types Use/Week Comments Never Sex Assigned at Date Recorded Not on file Job Start Date Occupation Industry Not on file Not on file Not on file documented as of this encounter Miscellaneous Notes Telephone Encounter - Kinza Leach RN - 05/17/2020 3:44 PM EST Spoke with the patient's mother, Jena, as the patient was sleeping. Reviewed the message below with her and she did write this down to be able to relay to the patient. Advised her to have the patient call the office with any other questions or concerns. Telephone Encounter - Masoud Miller MD - 05/17/2020 3:15 PM EST Please let Gerda know it is okay to take off cervical collar. If she gets a lot of neck fatigue or pain, she can wean the collar. This would simply be putting thecollar back for an hour on if she is getting a lot of neck pain, or having trouble holding the head up. elephone Encounter - Jose F Thomas MD - 05/17/2020 12:58 PM EST Those look fine OK to D/C collar. elephone Encounter - Masoud Miller MD - 05/16/2020 5:35 PM EST Nico, please review. Ms. Morales had her follow-up cervical spine x-rays today, no segmental motion or instability on flexion and extension views. Can you review and let me know if I can tell her to discontinue the cervical collar? documented in this encounter Plan of Treatment Not on filedocumented as of this encounter Visit Diagnoses Not on filedocumented in this encounter Care Teams Payment Specialist Relationship Specialty Start Date End Date Pcp, No PCP - Generic [facility] 02/10/20 PCP Telly Dietrich DO PCP - General Family Medicine 04/22/20 documented as of this encounter
--- OUTSIDE RECORDS SUMMARY | 2021-12-28 17:37 | XMS_ITS | Encounter Summary ---
:1975 Author Organization [facility] Address [address] [place] [address] Care Team Providers Name Role Phone Telly Dietrich DO Primary Care Provider Unavailable Agnieszka Phillips MD Unavailable Reason for Visit Reason Onset Date Comments Equipment 09/13/2020 Encounter Details Date Type Department Care Team Description 09/13/2020 Telephone [facility] Elver Phillips MD Equipment Urology [address] [place] [address] [place], [place] [phone] Social History Tobacco Use Types Packs/Day Years [...] this encounter Miscellaneous Notes Telephone Encounter - Berenice Woody MA - 09/17/2020 11:12 AM EDT [facility] has assigned patient to [facility] Scanned into the chart elephone Encounter - Berenice Woody MA - 09/13/2020 3:34 PM EST Order form has been faxed to [facility]. elephone Encounter - Mignon Shin ACNP - 09/13/2020 3:23 PM EST DX: neurogenic bladder Size and Type: male 14F self catheters with the bags attached Frequency: 5 times daily Length Of Need: Lifetime Prognosis: Good Telephone Encounter - Berenice Woody MA - 09/13/2020 3:17 PM EST Mignon can you write out . CIC documentation so I can send this over to [facility] for the patient. elephone Encounter - Mignon Shin ACNP - 09/13/2020 11:39 AM EST Sure, fine to change if they work better elephone Encounter - Kvng Ramirez RN - 09/13/2020 11:30 AM EST Patient calling in, she was taught CIC with nursing yesterday. She reports the male 14F self catheters with the bags attached have been working better for her than the 14F female catheters as they are longer and she is catheterizinging in bed. Advised patient we will let the prescriptions desk and the providers know. Patient verbalizes an understanding. Care Team D- FYI Refills- please review documented in this encounter Plan of Treatment Not on filedocumented as of this encounter Visit Diagnoses Not on filedocumented in this encounter Care Teams Welder Fitter Helper Relationship Specialty Start Date End Date Telly Dietrich DO PCP - General Family Medicine 04/22/20 Agnieszka Phillips MD Consulting Physician Urology 07/02/20 [address] [place] [address] documented as of this encounter
--- OUTSIDE RECORDS SUMMARY | 2021-12-28 17:37 | XMS_ITS | Encounter Summary ---
:1975 Author Organization [facility] Address [address] [place] [address] Care Team Providers Name Role Phone Telly Dietrich DO Primary Care Provider Unavailable Agnieszka Phillips MD Unavailable Reason for Visit Reason Onset Date Comments Error 09/23/2020 Encounter Details Date Type Department Care Team Description 09/23/2020 Erroneous Encounter [facility] Agnieszka Phillips MD Urology [address] [place] [address] [place], [place] [phone] Social History Tobacco Use Types Packs/Day Years [...] this encounter Miscellaneous Notes Telephone Encounter - Gage Hopkins - 09/23/2020 10:40 AM EDT error documented in this encounter Plan of Treatment Not on filedocumented as of this encounter Visit Diagnoses Not on filedocumented in this encounter Care Teams [employer] Truck Driver Relationship Specialty Start Date End Date Telly Dietrich DO PCP - General Family Medicine 04/22/20 Agnieszka Phillips MD Consulting Physician Urology 12/29/20 [address] [place] [address] documented as of this encounter
--- OUTSIDE RECORDS SUMMARY | 2021-12-28 17:37 | XMS_ITS | Encounter Summary ---
:1975 Author Organization [facility] Address [address] [place] [address] Care Team Providers Name Role Phone Agnieszka Phillips MD Unavailable Mignon Shin ACNP Unavailable Reason for Visit Reason Onset Date Comments Management Of Care 02/04/2021 Encounter Details Date Type Department Care Team Description 02/04/2021 Telephone [facility] Masoud Miller , Management Of Care Neuro Spine [facility] [address] [place] [address] 1st Floor [address] 1st [place] [phone] (Wo rk) Social History Tobacco Use [...] documented as of this encounter Progress Notes Kinza Morocho RN - 02/13/2021 1:34 PM EDT Addended by: KINZA MOROCHO on: 02/13/2021 01:34 PM Modules accepted: Orders documented in this encounter Miscellaneous Notes Telephone Encounter - Kinza Morocho RN - 02/13/2021 1:34 PM EDT Spoke with the patient and advised her that her wheelchair RX was mailed to her home. Advised her that if she still has not received it in a few days, to contact this office to advise. elephone Encounter - Whitney Mcbride I - 02/13/2021 12:49 PM EDT Patient is calling to see where her prescription for her wheelchair is [phone] Telephone Encounter - Masoud Miller MD - 02/07/2021 5:17 PM EDT Standing wheelchair order signed elephone Encounter - Aida Millard RN - 02/05/2021 1:24 PM EDT Called patient to see what she needs. She needs a prescription for a Standing Wheelchair. She has a template of what she needs on the prescription. Helps with pressure release and preserve the hips. Patient is paying out of pocket. She has a packet of stuff to send in. Can send the prescription to the patient home mail or mail to the company: [employer] [address] [place] [id number] Today's Date Name Address, Phone Number Patient name Date of Last Visit with Dr. Miller Choose item Super Stand Wheelchair Model HPS-2 Half Power DX: ICD 10 Code G82.20 Length of Need - Lifetime Signature of the Doctor Pended order to be reviewed by Dr. Miller elephone Encounter - Whitney Mcbride I - 02/05/2021 12:27 PM EDT Patient is returning RN call [phone] Telephone Encounter - Kinza Morocho RN - 02/04/2021 2:31 PM EDT Call placed to patient to discuss the message below, left message requesting a return call to #[phone]. elephone Encounter - Kinza Morocho RN - 02/04/2021 1:55 PM EDT ----- Message from Whitney Mcbride sent at 02/04/2021 10:51 AM EDT ----- savadove Question: patient calling in regards to needing a prescription for standing wheelchair Contact Number: [phone] Surgery/Procedure/Imagin02/13/2020 Last office visit: 10/02/2020 documented in this encounter Plan of Treatment Not on filedocumented as of this encounter Visit Diagnoses Diagnosis Closed nondisplaced fracture of sixth ce rvical vertebra, unspecified fracture morphology, initial encounter ([facility]) - Primary Open wedge fracture of thoracic vertebra with routine healing, unspecified thoracic vertebral level, subsequent encounter Paraplegia following spinal cord injury ([facility]); C7 incomplete, T3 YG A Paraplegia documented in this encounter Care Teams Medical Staff Services Manager Relationship Specialty Start Date End Date Agnieszka Phillips MD Consulting Physician Urology 07/02/20 [address] [place] [address] Mignon Shin ACNP Nurse Practitioner Urology 12/06/20 100 [facility] [address] [place] [address] documented as of this encounter
--- OUTSIDE RECORDS SUMMARY | 2021-12-28 17:37 | XMS_ITS | Encounter Summary ---
:1975 [facility] Address [address] [place] [address] Care Team Providers Name Role Phone Telly Dietrich DO Primary Care Provider Unavailable Agnieszka Phillips MD Unavailable Mignon Shin Unavailable Reason for Visit Reason Onset Date Comments Urinary Tract Infection 12/08/2020 Encounter Details Date Type Department Care Team Description 12/08/2020 Telephone [facility] Chidi Marina MD Urinary Tract Urology 22 [facility] Infection [address] [place] [address] [place], [place] [phone] Social History Tobacco Use Types Packs/Day Years [...] this encounter Miscellaneous Notes Telephone Encounter - Angie Perez RN - 12/11/2020 11:47 AM EDT Noted. Telephone Encounter - Mignon Shin ACNP - 12/11/2020 11:44 AM EDT UC >100K ecoli ESBL Treated with cipro appropriately elephone Encounter - Tree Bazan RN - 12/11/2020 11:25 AM EDT Care Team D- see below elephone Encounter - Kylie Larry - 12/11/2020 11:23 AM EDT Received UA/UC results from [facility], scanned into chart. elephone Encounter - Angie Perez RN - 12/11/2020 7:15 AM EDT Medical Records - any updates? elephone Encounter - Kylie Larry - 12/10/2020 1:09 PM EDT Spoke to [facility] lab, will fax result. elephone Encounter - Angie Perez RN - 12/10/2020 7:16 AM EDT [facility] Angie Perez RN at 12/10/2020 7:17 AM EDTTelephone Encounter - Gerda Nicholson RN - 12/09/2020 7:35 AM EDT Reminder set for tomorrow. elephone Encounter - José Marina MD - 12/08/2020 8:33 AM EDT Gerda Morales 1975 [id number] Gerda Morales is a 45 y.o. female with neurogenic bladder. Patient of Marilee Shin and Dr. Phillips. Thinks she has a UTI. Malodorous urine and increased incontinence (these are her typical symptoms). Sent script to pharmacy and order for UA and UCx to [facility]. Needs - please follow up on urine culture and tailor or d/c abx as needed José Marina MD documented in this encounter Plan of Treatment Scheduled Orders Name Type Priority Associated Diagnoses Order S chedule URINALYSIS REFLEX SEDIMENT Lab Routine Recurrent UTI Expected: 12/08/2020, + CULTURE Expires: 2021 documented as of this encounter Visit Diagnoses Diagnosis Recurrent UTI - Primary Urinary tract infection, site not specif ied documented in this encounter Care Teams Corporate Technical Recruiter Relationship Specialty Start Date End Date Telly Dietrich DO PCP - General Family Medicine 04/22/20 Agnieszka Phillips MD Consulting Physician Urology 07/02/20 [address] [place] [address] Mignon Shin ACNP Nurse Practitioner Urology 12/06/20 100 [facility] [address] [place] [address] documented as of this encounter
--- OUTSIDE RECORDS SUMMARY | 2021-12-28 17:37 | XMS_ITS | Encounter Summary ---
:1975 Author Organization [facility] Address [address] [place] [address] Care Team Providers Name Role Phone Pcp, No Unavailable Unavailable Telly Dietrich DO Primary Care Provider Unavailable Reason for Visit Reason Onset Date Comments Triage Problem 05/10/2020 Encounter Details Date Type Department Care Team Description 05/10/2020 Telephone [facility] SP 55 SPRG Masoud Miller MD Triage Problem [address] [place], [place] [address] 1[address] Floor [phone] [place] [address] (Wo rk) Social History Tobacco [...] this encounter Miscellaneous Notes Telephone Encounter - Daysi Galvez - 05/10/2020 5:03 PM EST Mao stated they had the referrals and that all they needed was a copy of ins cards and demographics and had asked if I could fax, which I did. They are all set. Dr. Miller notified. Closing encounter elephone Encounter - Masoud Miller MD - 05/10/2020 3:57 PM EST Please clarify with [facility]: I did not enter the original home care orders. I believe they were entered when she was discharged from [facility]. I am perfectly willing to follow along, provide clinical oversight, and sign off on the orders but this would represent a transition of care. I just want to make sure that they are clear on wrote the original order. Telephone Encounter - Daysi Galvez - 05/10/2020 3:30 PM EST Mao from [facility] called requesting to have patient's demographics and insurance cards faxed over [employer]. Faxed to [facility] at [phone]. elephone Encounter - Masoud Miller MD - 05/10/2020 12:11 PM EST I do not think I entered the home care orders, but I will confirm the need for PT, OT, and RN. RN required for skin assessments, Snow catheter changes. elephone Encounter - Kinza Leach RN - 05/10/2020 10:56 AM EST Received call from Vielka adams/[employer]. She advises that they have received Dr. Miller's OV note. She is calling to confirm that that the patient is requiring OT, PT and she has questioned if the patient also requires nursing visits. They will need there patient's address, contact information and insurance information faxed to them. FAX: [phone] There are not any referrals for PT or OT in [facility]. Will follow up with Dr. Miller. elephone Encounter - Kinza Leach RN - 05/10/2020 10:23 AM EST ----- Message from Criselda Vargas MA sent at 05/10/2020 9:42 AM EST ----- Angela Question: Vielka from [employer] calling to get information on patient to create a plan of care. Contact Number: [phone] Surgery/Procedure/Imagin02/13/20 Last office visit: 05/02/20 documented in this encounter Plan of Treatment Not on filedocumented as of this encounter Visit Diagnoses Not on filedocumented in this encounter Care Teams Ceramic Capacitor Processor Relationship Specialty Start Date End Date Pcp, No PCP - Generic [facility] 02/10/20 PCP Telly Dietrich DO PCP - General Family Medicine 04/22/20 documented as of this encounter
--- OUTSIDE RECORDS SUMMARY | 2021-12-28 17:37 | XMS_ITS | Encounter Summary ---
:1975 Author Organization [facility] Address [address] [place] [address] Care Team Providers Name Role Phone Telly Dietrich DO Primary Care Provider Unavailable Agnieszka Phillips MD Unavailable Reason for Referral Consult, Test & Treat (Routine) - Closed Specialty Diagnoses / Procedures Referred By Contact Refer red To Contact Occupational Therapy Diagnoses Paraplegia following spinal cord injury ([facility]) Masoud Miller MD [address] [place], [place] [address] [address] Referral ID Status Reason Start Date Expiration Date Visits Requ ested Visits Authorized [id number] Closed 12/03/2020 12/03/2021 6 6 Reason for Visit Reason Comments Follow-up Encounter Details Date Type Department Care Team Description 11/22/2020 Telemedicine [facility] NEURO SP 55 SPR Masoud Miller MD [address] [place] [address] [place], [place] [phone] [place] [address] [place] [address] (Wo rk) Social History Tobacco [...] Sign Reading Time Taken Comments Blood Pressure - - Pulse - - Temperature - - Respiratory Rate - - Oxygen Saturation - - Inhaled Oxygen Concentration - - Weight 68 kg (150 lb) 11/22/2020 1:19 PM EDT Height 162.6 cm (5' 4) 11/22/2020 1:19 PM EDT Body Mass Index 25.75 11/22/2020 1:19 PM EDT documented in this encounter Patient Instructions Patient InstructionsMasoud Miller MD - 11/25/2020 11:35 AM EDT 1. We will see how you are bowel regimen settles down once you are transferring independently and can implement a bowel regimen directly after breakfast. The goal is pain predictable bowel movement every other day or every day, with no or very infrequent bowel accidents. Bowel irrigation system may quiros option but I suspect will not be necessary. 2. Bladder: Discuss Botox option with urology. Continue self-catheterization and oxybutynin. 3. Pain: You can change gabapentin from 300 mg 3 times daily scheduled dose to as-needed only. 4. Spasticity: Continue baclofen 5-10 mg as needed 5. 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 If you are undergoing any minor surgical procedure in the future, in particular a procedure that would normally require local anesthesia or a nerve block such as trimming of ingrown toenails, make sure you get the nerve block or local anesthesia. This willdecrease the risk of autonomic dysreflexia. 6. Driving: I have placed an adaptive driving referral to pathways rehabilitation. Follow-up with [employer] with regard to funding this evaluation and the expected vehicle modifications. I also suggest you contact the [facility] office of vocational rehabilitation, you can access this through the [place].gov website, for additional assistance in funding. 7. If needed, and a low platform with a ramp constructed to allow you to do a level transfer in and out of bed documented in this encounter Progress Notes Masoud Miller MD - 11/22/2020 1:57 PM EDT REASON FOR VISIT:??Follow-up of spinal cord injury ?? LAST EVALUATION: 10/02/2020 ?? INITIAL EVALUATION:??02/21/2020 (in-hospital consultation)? ASSESSMENT:?? 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 ??C3-4 and C6 spinal cord contusion 3. ??C6 laminar fractures, immobilized in [place] collar 4. ??Multiple bilateral rib fractures 5. ??VDRF, status post tracheostomy, now decannulated 6. Dysphagia, now resolved 7.??Neurogenic bowel 8.??Neurogenic bladder??with Snow catheter ?? DISCUSSION AND PLAN: 1. We will see how bowel regimen settles down once she is transferring independently and can implement a bowel regimen directly after breakfast. The goal is predictable bowel movement every other day or every day, with no or rare bowel accidents. Bowel irrigation system may be an option but I suspect will not be necessary. 2. Bladder: Has telehealth visit with urology to discuss Botox option. Continue CIC and oxybutynin. Had incontinence on Myrbetriq 3. Pain: Mostly well controlled, episodes of neuropathic pain only occur once every few days. Will change gabapentin from 300 mg 3 times daily to PRN use only. 4. Spasticity: Continue baclofen 5-10 mg as needed, has not needed this for a while 5. 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 I reminded her that if she is undergoing a minor surgical procedure in the future, in particular a procedure that would normally require local anesthesia or a nerve block such as trimming of ingrown toenails, and she should go ahead and have the nerve block. This will decrease the risk of autonomic dysreflexia. 6. Driving: Gerda has been in touch with [employer] regarding funding for return to driving and vehiclemodifications, she is awaiting a call back. I will place a referral to pathways rehabilitation to start the process for adaptive driving modifications and training. I also advised her to contact the [facility] Board of vocational rehabilitation to assist with funding for this. 7. We discussed the new set up in her home which has had modifications for wheelchair use. There is a small height discrepancy of about 3 inches between her wheelchair and her new bed. This is not a hospital bed but rather a sleep number bed which she prefers. I suggested she have a low platform constructed to allow her to do a level transfer in and out of the bed. INTERVAL HISTORY: Gerda is seen in telehealth follow-up of her T3 YG A spinal cord injury??and paraplegia. She was last seen on 10/02/2020. Since her last visit, modifications were completed on her home in [place], she returned home about a week ago. Since returned home and with her new set up, she is doing well. No skin issue, transfers have gotteneasier. She now has a role-in shower. She is using a sleep number bed which she prefers, but does require an uphill transfer from the wheelchair to get back in bed. She is still using a regular slidingboard, not BZ board. Bowel regimen improving though not optimal. She is using digital stim only, bowel regimen resulted in a bowel movement every other day after about 15 minutes. She has had 2 bowel accidents, improved from previously. She has had 2 UTIs since last seen, most recently treated with Cipro. She is self catheterizing 5-6 times a day. She had a trial of Myrbetriq at the end of October, this resulted in frequent episodes of incontinence between catheterizations. She has resumed oxybutynin with improvement. She has a visit with urology scheduled for December 06 to discuss bladder injection of Botox. Intermittent spasm, has baclofen 5-10 mg 3 times daily prescribed but has not had to use it for several weeks. No episodes of autonomic dysreflexia. She did have an ingrown toenail, debrided by podiatry in [place] and started on doxycycline. She notes that debridement of the toenail did not trigger any dysreflexic episode. PHYSICAL EXAMINATION: She is a pleasant woman in no acute distress seated in a manual wheelchair. Mood is good. Can navigate wheelchair easily and without discomfort. REVIEW OF SYSTEMS: Positive for spinal cord injury, paraplegia, neurogenic bowel, neurogenic bladder, UTI, neuropathic pain. No recent episodes of autonomic dysreflexia, no skin breakdown. Otherwise noncontributory. CC: Telly Dietrich, DO [facility] Masoud Miller MD - 11/22/2020 1:20 PM EDT This visit was performed as a Video Visit due to COVID -[address] of a clinical visit. The patient was physically located at home in [place], the provider was located at work. The following individuals were present during the telemedicine encounter:GERDA NAPOLES Verbal consent was obtained from the patient. The consent can be located on the [employer] website at www.[employer] > [employer]> and use the search feature and type ? Telehealth Service?? to locate the consent. Patient identification was confirmed via (). I certify that I spent 31 minutes in contact with the patient. documented in this encounter Plan of Treatment Not on filedocumented as of this encounter Procedures Procedure Name Priority Date/Time Associated Diagnosis Comme nts AMB REFERRAL TO OCCUPATIONAL Routine 12/06/2020 Paraplegia f ollowing spinal THERAPY cord injury (CMS-HCC); C7 incomplete, T3 YG A documented in this encounter Visit Diagnoses Diagnosis Paraplegia following spinal cord injury (CMS-HCC); C7 incomplete, T3 YG A - Primary Paraplegia Neurogenic bowel Neurogenic bladder Neurogenic bladder, NOS documented in this encounter Care Teams Senior Analyst Developer Relationship Specialty Start Date End Date Telly Dietrich, DO PCP - General Family Medicine 04/22/20 Agnieszka Phillips MD Consulting Physician Urology 07/02/20 [address] [place] [address] documented as of this encounter
--- OUTSIDE RECORDS SUMMARY | 2021-12-28 17:37 | XMS_ITS | Encounter Summary ---
:1975 Author Organization [facility] Address [address] [place] [address] Care Team Providers Name Role Phone Agnieszka Phillips MD Unavailable Mignon Shin ACN Unavailable Reason for Visit Reason Onset Date Comments Urinary Tract Infection 02/08/2021 Encounter Details Date Type Department Care Team Description 02/08/2021 Telephone [facility] Hany Soto, Urinary Tract Urology Infection [address] [place], [place] [address] [address] [place], [place] [phone] (Wo rk) Social History Tobacco Use Types [...] documented as of this encounter Progress Notes Jaskaran Parada RN - 02/10/2021 9:33 AM EDT Addended by: JASKARAN PARADA on: 02/10/2021 09:33 AM Modules accepted: Orders documented in this encounter Miscellaneous Notes Telephone Encounter - Esperanza Casper - 04/09/2021 10:12 AM EDT Per med recs TE pt moved to [place] elephone Encounter - Esperanza Casper - 02/10/2021 1:33 PM EDT Currently Agnieszka Phillips MD 's botox spots are full for March. Waiting on schedule elephone Encounter - Kylie Larry - 02/10/2021 12:22 PM EDT Received UC result from [facility] scanned into chart. elephone Encounter - Jaskaran Parada RN - 02/10/2021 10:06 AM EDT Noted by triage. elephone Encounter - Jillian Muse PAC - 02/10/2021 9:53 AM EDT I am not sure about Dr. Phillips's Botox schedule so I will send this to jas and Kezia Aldridge who will know more about this. [place] elephone Encounter - Jaskaran Parada RN - 02/10/2021 9:20 AM EDT 02/08/21 UA result in Epic. UC pending. Pt on empiric Cipro. Called pt for updates. Pt reports she is feeling a lot better today. Pt says her incontinence is way better. Pt says the lab at [facility] requested we fax a copy of the UA/UC order to them at: Pt says they accepted a verbal order due to it being a weekend, although they don't normally do this. Pt will continue Cipro unless she hears otherwise from this office. Pt moving to [place] and will need records transferred to [facility]. Pt wondering if Jacqueline would be able to still do her Botox in the fall or if we could some how try to get her further up the list when she is referred to the new urologist. Pt is concerned that with the move, she will have to wait until Winter to get Botox again if it isn't done here. Orders for UA/UC faxed to [facility]. Advised pt would forward her request/concern about arranging for Botox to care team and call back with recommendations. Care Team D, for your review elephone Encounter - Kylie Larry - 02/10/2021 8:44 AM EDT UA from [facility] is scanned into chart. UC is pending. elephone Encounter - Kylie Larry - 02/10/2021 8:37 AM EDT Spoke to [facility] lab, UC is not completed. Will follow up. elephone Encounter - Tree Bazan RN - 02/10/2021 7:19 AM EDT UA found in [facility]. Printed and brought to to scan. Medical records- [facility] Tree Bazan, [place] at 02/10/2021 7:19 AM EDTTelephone Encounter - Hany Soto MD - 02/08/2021 4:47 PM EDT I was called by Gerda this morning about a UTI concern. She performs CIC at baseline so has a higherUTI risk. Unfortunately, she has new sediment in her urine and her incontinence is much worse. She also feels very tired. No foul odor and no F/C. She has a dip stick home testing kit and it was positive for leuks and nitrites. She has a urine sample in the refrigerator. I am prescribing Cipro twice daily for 5 days. She has used this successfully in the past. She will aim to drop off a urine sample at her home facility, [facility] in [place]. ?? Triage, can you follow up on this Wednesday morning? Thank you, ?? Hany Soto MD documented in this encounter Plan of Treatment Not on filedocumented as of this encounter Procedures Procedure Name Priority Date/Time Associated Diagnosis Comme nts URINALYSIS SCREEN Routine 02/08/2021 Urinary tract infection associated with catheterization of urin olesya tract, unspecified indwelling urina ry catheter type, sequela CULTURE URINE Routine 02/08/2021 Urinary tract infection ass ociated with catheterization of urin olesya tract, unspecified indwelling urina ry catheter type, sequela documented in this encounter Results CULTURE URINE (02/08/2021) Specimen (Source) Anatomical Location Collection Method / Collectio n Time Received Time / Laterality Volume Urine 02/08/2021 Narrative This result has an attachment that is no t available. Hany Soto MD MICROBIOLOGY - GENERAL ORDER BUDDY Performing Organization Address City/State/ZIP Code Phon e Number .MANUAL ENTRY (EXTERNAL LAB) URINALYSIS SCREEN (02/08/2021) Specimen (Source) Anatomical Location Collection Method / Collectio n Time Received Time / Laterality Volume Urine 02/08/2021 Narrative This result has an attachment that is no t available. Hany Soto MD URINALYSIS ORDERABLES Performing Organization Address City/State/ZIP Code Phon e Number .MANUAL ENTRY (EXTERNAL LAB) documented in this encounter Visit Diagnoses Diagnosis Urinary tract infection associated with catheterization of urinary tract, unspecified indwelling urinary catheter type, sequel a - Primary documented in this encounter Care Teams Grain Handler Relationship Specialty Start Date End Date Agnieszka Phillips MD Consulting Physician Urology 07/02/20 100 [place] [address] Mignon Shin, REJIP Nurse Practitioner Urology 12/06/[address] [address] documented as of this encounter
--- OUTSIDE RECORDS SUMMARY | 2021-12-28 17:37 | XMS_ITS | Encounter Summary ---
:1975 Author Organization [facility] Address [address] [place] [address] Care Team Providers Name Role Phone Pcp, No Unavailable Unavailable Reason for Visit Reason Onset Date Comments Management Of Care 04/05/2020 Encounter Details Date Type Department Care Team Description 04/05/2020 Telephone [facility] Jose F Thomas Management Of Care Neurosurgery Shin Fuller MD [address] [place] [address] [place] [address] Dr Ramos A 1st [place], [place] [phone] [place], [place] [phone] (Wo rk) Social History Tobacco Use Types [...] Notes Telephone Encounter - Daysi Galvez - 04/18/2020 4:48 PM EDT Discharge summary received and scanned into chart. elephone Encounter - Anne Bose MA - 04/16/2020 5:03 PM EDT patient called to schedule appointment. She has been made aware to contact [facility] to request notes to be faxed to us. Patient also scheduled 2 weeks in new patient slot w/Dr Miller elephone Encounter - Masoud Miller MD - 04/05/2020 2:22 PM EDT Seen multiple times as in-hospital consultation: 1. T4 spinal cord injury, likely neurologically complete 2. C3-4 and C6 spinal cord contusion 3. C6 laminar fractures, immobilized in [place] collar 4. Multiple bilateral rib fractures 5. VDRF, status post tracheostomy 6. Dysphagia, possibly for PEG 7. Neurogenic bowel 8. Neurogenic bladder Please request discharge summary from [facility], and schedule 60-minute OV for follow-up of spinal cord injury, next available. elephone Encounter - Jose F Thomas MD - 04/05/2020 11:10 AM EDT She has no known neurosurgical needs at this time, and has already established care with Dr. Miller. I am available to assist him in any way he needs, but her post rehab discharge issues are best addressed by him. elephone Encounter - Halley Deleon - 04/05/2020 11:04 AM EDT ----- Message from Hailee Herrera sent at 04/04/2020 4:32 PM EDT ----- [facility] is calling Please call them to schedule follow up soaking tank worker [phone] Estuardo Gilman elephone Encounter - Halley Deleon - 04/05/2020 11:03 AM EDT Per discharge note pt to f/u in 4 weeks. Will patient need xrays at the time of appointment. Please advise. documented in this encounter Plan of Treatment Not on filedocumented as of this encounter Visit Diagnoses Not on filedocumented in this encounter Care Teams Service Rig Operator Relationship Specialty Start Date End Date Pcp, No PCP - Generic [facility] PCP 02/10/20 07/29/20 documented as of this encounter
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
--- OUTSIDE RECORDS SUMMARY | 2021-12-28 17:37 | XMS_ITS | Encounter Summary ---
:1975 Author Organization [facility] Address [address] [place] [address] Care Team Providers Name Role Phone Telly Dietrich DO Primary Care Provider Unavailable Agnieszka Phillips MD Unavailable Mignon Shin ACNP Unavailable Reason for Visit Reason Comments Medications Refill Encounter Details Date Type Department Care Team Description 12/08/2020 Refill [facility] Penny Muse, PAC Urology [address] [place] [address] [place], [place] [phone] Social History Tobacco Use Types Packs/Day Years [...] this encounter Miscellaneous Notes Telephone Encounter - Anne Fernandez MA - 12/09/2020 7:45 AM EDT Received medication request from MARTHA Cochran Medication Requested: Oxybutynin 10 mg Quantity and # of refills: #90 refills 1 Date of Last Refill:11/13/2020 #30 refills 3 Last OV: 12/06/2020 Pending appts: Recall 03/23/2021 Approved and sent E-prescibed to their pharmacy. documented in this encounter Plan of Treatment Not on filedocumented as of this encounter Visit Diagnoses Not on filedocumented in this encounter Care Teams Solar Energy Sales Specialist Relationship Specialty Start Date End Date Telly Dietrich DO PCP - General Family Medicine 04/22/20 Agnieszka Phillips MD Consulting Physician Urology 07/02/20 [address] [place] [address] Mignon Shin ACNP Nurse Practitioner Urology 12/06/20 100 [facility] [address] [place] [address] documented as of this encounter
--- OUTSIDE RECORDS SUMMARY | 2021-12-28 17:37 | XMS_ITS | Encounter Summary ---
:1975 Author Organization [facility] Address [address] [place] [address] Care Team Providers Name Role Phone Pcp, No Unavailable Unavailable Telly Dietrich DO Primary Care Provider Unavailable Reason for Visit Reason Onset Date Comments Management Of Care 05/16/2020 Encounter Details Date Type Department Care Team Description 05/16/2020 Telephone [facility] [address] [place] Masoud Miller, Management Of Care [address] [address] [address] Floor [phone] [place] [address] (Wo rk) Social History Tobacco [...] this encounter Miscellaneous Notes Telephone Encounter - Shabnam Harper RN - 05/16/2020 11:57 AM EST Incoming call from Katelyn at [facility] Radiology. Patient is there to have her x-rays completed. Katelyn is asking if the patient may remove her aspen collar for the x-ray. Patient is scheduled for lateral/flexion/extension x-rays. Per Dr. Miller, she may remove her collar to have the x-rays completed. Notified Katelyn at [facility]iology that patient may proceed with x-rays out of the collar. Please have patient reapply collar once imaging is completed. documented in this encounter Plan of Treatment Not on filedocumented as of this encounter Visit Diagnoses Not on filedocumented in this encounter Care Teams Shake Feeder Relationship Specialty Start Date End Date Pcp, No PCP - Generic [facility] 02/10/20 PCP Telly Dietrich DO PCP - General Family Medicine 04/22/20 documented as of this encounter
--- OUTSIDE RECORDS SUMMARY | 2021-12-28 17:37 | XMS_ITS | Encounter Summary ---
:1975 Author Organization [facility] Address [address] [place] [address] Care Team Providers Name Role Phone Telly Dietrich DO Primary Care Provider Unavailable Agnieszka Phillips MD Unavailable Encounter Details Date Type Department Care Team Description 08/08/2020 Hospital Encounter [facility] XRMasoud Devi, [address] [place] [address] Dr MAXWELL [address] [place] [address] [address] [phone] [place] [address] (Wo rk) Social History Tobacco [...] Sig Dispensed Refills Start Date End Date Misc. Devices Padded commode chair. 1 Each 0 08/06/2020 MiscIndications: Diagnosis: G 82.20. Paraplegia following Last seen 08/06/2020 spinal cord injury ([facility]) Misc. Devices Beasy board for 1 Each 0 08/06/2020 MiscIndications: transfers. Diagnosis: Paraplegia following 82.20. Last seen spinal cord injury 08/06/2020 ([facility]) gabapentin 300 MG Cap TAKE 1 CAPSULE BY 0 021 MOUTH EVERY 8 HOURS DIRECTED Baclofen 5 MG Tab TAKE 1 TO 2 TABLETS 3 0 020 TIMES DAILY NEEDED escitalopram 5 MG Tab Take 1 Tab (5 mg 30 Tab 3 03/15/20 20 total) by mouth daily documented as of this encounter Plan of Treatment Not on filedocumented as of this encounter Procedures Procedure Name Priority Date/Time Associated Diagnosis Comme nts XR ABDOMEN ACUTE Routine 08/08/2020 4:30 PM Neurogenic bowel R esults for this SERIES INCLUDES 1 EST procedure are in VW CHEST the results section. documented in this encounter Results XR Abdomen Acute Series Includes 1 VW Chest (08/08/2020 4:30 PM EST) Anatomical Region Laterality Modality Abdomen, Chest Computed Radiography Specimen (Source) Anatomical Collection Method Collection Time Re ceived Time Location / / Volume Laterality 08/08/2020 4:00 PM EST Narrative RADIOLOGY - 08/08/2020 4:46 PM EST EXAM: XR ABD ACUTE INDICATION: diarrhea, neurogenic bowel ? ?XR obstruction series including upright CXR (seated) COMPARISON: Chest x-ray 03/04/2020, abdom en 02/23/2020 TECHNIQUE: Two views of the abdomen and one view of the chest was obtained. FINDINGS: The lungs are grossly clear. No pneumoth orax or pleural effusion is seen. The cardiomediastinal silhouette and bones are stable. No free air is seen in the diaphragm. Upper thoracic posterior fusion hardware noted. There is a nonspecific bowel gas pattern with no pathologically dilated small bowel loops to suggest high-grade obstruction, though there some mildly dilated loops in the right lower quadrant. No pathologic calcifications are identified. IMPRESSION: Nonspecific, nonobstructive bowel gas pattern. * * ??THIS IS AN ELECTRONICALLY VERIFIED REPORT CREATED USING VOICE RECOGNITION * * 08/08/2020 4:44 PM ??José Quinn MD Procedure Note José Quinn MD - 08/08/2020 EXAM: XR ABD ACUTE INDICATION: diarrhea, neurogenic bowel X R obstruction series including upright CXR (seated) COMPARISON: Chest x-ray 03/04/2020, abdom en 02/23/2020 TECHNIQUE: Two views of the abdomen and one view of the chest was obtained. FINDINGS: The lungs are grossly clear. No pneumoth orax or pleural effusion is seen. The cardiomediastinal silhouette and bones are stable. No free air is seen in the diaphragm. Upper thoracic posterior fusion hardware noted. There is a nonspecific bowel gas pattern with no pathologically dilated small bowel loops to suggest high-grade obstruction, though there some mildly dilated loops in the right lower quadrant. No pathologic calcifications are identified. IMPRESSION: Nonspecific, nonobstructive bowel gas pattern. * * THIS IS AN ELECTRONICALLY VERIFIED R EPORT CREATED USING VOICE RECOGNITION * * 08/08/2020 4:44 PM José Quinn MD Masoud Miller MD IMG DIAGNOSTIC IMAGING ORDER BUDDY Performing Organization Address City/State/ZIP Code Phon e Number RADIOLOGY documented in this encounter Visit Diagnoses Diagnosis Neurogenic bowel documented in this encounter Care Teams Graphite Disk Assembler Relationship Specialty Start Date End Date Telly Dietrich DO PCP - General Family Medicine 04/22/20 Agnieszka Phillips MD Consulting Physician Urology 07/02/20 [address] [place] [address] documented as of this encounter
--- OUTSIDE RECORDS SUMMARY | 2021-12-28 17:37 | XMS_ITS | Encounter Summary ---
:1975 Author Organization [facility] Address [address] [place] [address] Care Team Providers Name Role Phone Agnieszka Phillips MD Unavailable Mignon Shin Unavailable Encounter Details Date Type Department Care Team Description 02/10/2021 Orders Only [facility] Hany Soto MD Urology [address] [place] [address] [phone] (Wo rk) Social History Tobacco Use Types [...] on file documented as of this encounter Plan of Treatment Not on filedocumented as of this encounter Visit Diagnoses Diagnosis Recurrent UTI Urinary tract infection, site not specif ied documented in this encounter Care Teams Quarter Section Ironer Relationship Specialty Start Date End Date Agnieszka Phillips MD Consulting Physician Urology 07/02/[address] [place] [address] Mignon Shin ACNP Nurse Practitioner Urology 12/06/[address] documented as of this encounter
--- OUTSIDE RECORDS SUMMARY | 2021-12-28 17:37 | XMS_ITS | Encounter Summary ---
:1975 Author Organization [facility] Address [address] [place] [address] Care Team Providers Name Role Phone Telly Dietrich DO Primary Care Provider Unavailable Agnieszka Phillips MD Unavailable Reason for Visit Reason Onset Date Comments Review Imaging Studies 08/08/2020 Encounter Details Date Type Department Care Team Description 08/08/2020 Telephone [facility] SP [facility] Masoud Miller Review Imaging Studies 55 SPR[place] MD JESSIE PalmerJENNIF[address] [address] 1st Floor [phone] [place] [address] Social History Tobacco Use Types Packs/Day Years [...] Telephone Encounter - Kinza Leach RN - 08/09/2020 10:47 AM EST Spoke with the patient and relayed the message below and she verbalized an understanding. elephone Encounter - Masoud Miller MD - 08/08/2020 5:33 PM EST Results: Abdominal x-ray/obstruction series 08/08/2020:The lungs are grossly clear. No pneumothorax orpleural effusion is seen. The cardiomediastinal silhouette and bones are stable. No free air is seenin the diaphragm. Upper thoracic posterior fusion hardware noted. ?? There is a nonspecific bowel gas pattern with no pathologically dilated small bowel loops to suggesthigh-grade obstruction, though there some mildly dilated loops in the right lower quadrant. No pathologic calcifications are identified. Summary: Nonspecific bowel gas pattern, some dilated loops in the right lower quadrant but nothing to suggest bowel obstruction. She would be safe to start a more aggressive bowel regimen. Suggest addition of daily enema (this can be a mini enema such as the Enemeez product, or a regular fleets enema, done as part of her regularbowel regimen until she is on a more consistent pattern with no bloating. documented in this encounter Plan of Treatment Not on filedocumented as of this encounter Visit Diagnoses Not on filedocumented in this encounter Care Teams Appliance Tester Relationship Specialty Start Date End Date Telly Dietrich DO PCP - General Family Medicine 04/22/20 Agnieszka Phillips MD Consulting Physician Urology 07/02/20 [address] [place] [address] documented as of this encounter
--- OUTSIDE RECORDS SUMMARY | 2021-12-28 17:37 | XMS_ITS | Encounter Summary ---
:1975 Author Organization [facility] Address [address] [place] [address] Care Team Providers Name Role Phone Pcp, No Unavailable Unavailable Encounter Details Date Type Department Care Team Description 04/18/2020 Abstract [facility] NEURO SP 55 SPRMasoud Sotomayor MD [address] [place] [phone] [facility] Floor [phone] [place] [address] (Wo rk) Social History Tobacco [...] on filedocumented in this encounter Care Teams Steel Spar Operator Relationship Specialty Start Date End Date Pcp, No [facility]CP - [facility] 02/10/20 07/29/20 documented as of this encounter
--- OUTSIDE RECORDS SUMMARY | 2021-12-28 17:37 | XMS_ITS | Encounter Summary ---
:1975 Author Organization [facility] Address [address] [place] [address] Care Team Providers Name Role Phone Telly Dietrich DO Primary Care Provider Unavailable Agnieszka Phillips MD Unavailable Encounter Details Date Type Department Care Team Description 10/01/2020 Hospital Encounter [facility] Laboratory [place] Telly Dietrich, [place] [address] Social History Tobacco Use Types Packs/Day Years [...] Sig Dispensed Refills Start Date End Date Ascorbic Acid (Vitamin C) Take by mouth 0 1000 MG Tab Cranberry 1000 MG Cap Take by mouth 0 D-Mannose Powder by Does not apply 0 route Misc. Devices Padded commode chair. 1 Each 0 08/06/2020 MiscIndications: Diagnosis: G 82.20. Paraplegia following Last seen 08/06/2020 spinal cord injury [place] Misc. Devices Beasy board for 1 Each 0 08/06/2020 MiscIndications: transfers. Diagnosis: Paraplegia following 82.20. Last seen spinal cord injury 08/06/2020 ([facility] gabapentin 300 MG Cap TAKE 1 CAPSULE [...] Priority Date/Time Associated Diagnosis Comme nts URINALYSIS REFLEX Routine 09/30/2020 9:00 AM Cloudy urin e Results for this SEDIMENT + CULTURE EDT Abnormal urin e odor procedure are in Neurogenic the results dysfunction of the section. urinary bladder CULTURE URINE Routine 09/30/2020 9:00 AM Results for this EDT procedure are i n the results section. documented in this encounter Results (ABNORMAL) Culture Urine (09/30/2020 9:00 AM EDT) [facility] Method Time Signature Culture UR >100,000 CFU/mL [facility] SCARB GRAM NEGATIVE [place] (A) Culture UR CITROBACTER NORDX SCARB FREUNDII (A) [place] Comment: All routine bacteriological aury ntification and susceptibility testing is performed at the [facility] Specimen Anatomical Collection Method Collection Time Receive d Time (Source) Location / / Volume Laterality Urine specimen 09/30/2020 9:00 AM 021 6:01 (specimen) EDT PM EDT Organism Antibiotic Method Susceptibility Citrobacter Freundii Amikacin <=8 mcg/mL: Sensitive Citrobacter Freundii Ampicillin >16 mcg/mL: Resistant Citrobacter Freundii Ampicillin/sulbactam mcg/m L: Resistant Citrobacter Freundii Aztreonam <=2 mcg/mL: Sensitive Citrobacter Freundii Cefazolin >16 mcg/mL: Resistant Citrobacter Freundii Cefepime <=1 mcg/mL: Sensitive Citrobacter Freundii Ceftazidime <=2 mcg/mL: Sensitive Citrobacter Freundii Ceftriaxone <=1 mcg/mL: Sensitive Citrobacter Freundii Ciprofloxacin <=0.25 mcg/ mL: Sensitive Citrobacter Freundii Ertapenem <=0.25 mcg/ mL: Sensitive Citrobacter Freundii Gentamicin <=2 mcg/mL: Sensitive Citrobacter Freundii Levofloxacin <=0.5 mcg/m L: Sensitive Citrobacter Freundii Meropenem <=0.5 mcg/m L: Sensitive Citrobacter Freundii Nitrofurantoin <=16 mcg/mL : Sensitive Citrobacter Freundii Piperacill +Tazobactam <=2/ 4 mcg/mL: Sensitive Citrobacter Freundii Tetracycline <=2 mcg/mL: Sensitive Citrobacter Freundii Tobramycin <=2 mcg/mL: Sensitive Citrobacter Freundii Trimethoprim + <=0.5/9.5 m cg/mL: Sensitive Sulfamethoxazole Telly Dietrich DO MICROBIOLOGY - GENERAL ORDER BUDDY Performing Organization Address City/[facility]/ZIP Code Phon e Number [facility] [address] [place] [address] 2 [phone] [facility] [address] [place] [address] [place] [address] (ABNORMAL) Urinalysis Reflex Sediment + Culture (09/30/2020 9:00 AM EDT) [facility] Method Time Signature Color Ur YELLOW [facility] Appearance UR TURBID (A) [facility] Specific [place] 1.015 1.005 - NORDX UR 1.030 [facility] Leukocyte 2+ (A) NEGATIVE [facility] Esterase Ur [facility] Nitrite Ur POSITIVE (A) NEGATIVE [facility] pH Ur 6.5 5.0 - 8.0 [facility] Protein UR 30 (A) NEGATIVE [facility] mg/dL [facility] Glucose UR QL NORMAL NEGATIVE [facility] mg/dL [facility] Ketones Ur Ql NEGATIVE NEGATIVE [facility] Urobilinogen Ur NORMAL NORMAL [place] mg/dL [facility] Hemoglobin, UR APPROX 50 NEGATIVE [place] (A) Rodriguez/uL [facility] Urine Sediment PERFORMED [facility] Erythrocytes, Ur 0-2 /HPF [facility] Sediment [facility] Leukocytes Ur >100 /HPF [facility] Sediment [facility] Epithelial Cells NONE SEEN /HPF [facility] UR Sediment [facility] Bacteria Ur 4+ /HPF [place] Sediment [facility] Urine Culture SET UP [facility] Specimen Anatomical Collection Method Collection Time Receive d Time (Source) Location / / Volume Laterality Urine 09/30/2020 9:00 AM 6:01 EDT PM EDT Telly Dietrich DO URINALYSIS ORDERABLES Performing Organization Address City/[facility]/ZIP Code Phon e Number [facility] [address] [place] [address] [facility] [address] [place] [address] Theatrical Agent: Carlo Sidhu MD documented in this encounter Visit Diagnoses Diagnosis Cloudy urine Other nonspecific finding on examination of urine Abnormal urine odor Other nonspecific finding on examination of urine Neurogenic dysfunction of the urinary bl adder Neurogenic bladder, NOS documented in this encounter Care Teams Ground Support Equipment Fitter Relationship Specialty Start Date End Date Telly Dietrich DO PCP - General Family Medicine 04/22/20 Agnieszka Phillips MD Consulting Physician Urology 07/02/20 [address] [place] [address] documented as of this encounter
--- OUTSIDE RECORDS SUMMARY | 2021-12-28 17:37 | XMS_ITS | Encounter Summary ---
:1975 Author Organization [facility] Address [address] [place] [address] Care Team Providers Name Role Phone Agnieszka Phillips MD Unavailable Mignon ShinP Unavailable Reason for Visit Reason Comments Medications Refill Encounter Details Date Type Department Care Team Description 04/11/2021 Refill [facility] Mignon Shin, ACNP Urology [address] [place] [address] [phone] (Wo rk) Social History Tobacco Use Types [...] this encounter Miscellaneous Notes Telephone Encounter - Faustina Mae - 04/14/2021 7:25 AM EDT Approved and sent E-prescibed to their pharmacy. elephone Encounter - Faustina Mae - 04/11/2021 2:30 PM EDT Received Surescript from [employer] [place] Medication Requested: Methenamine 1 g Quantity and # of refills: #60 with 6 refills Last OV: 12/06/2020 Pending appts: Visit date not found Medication refill encounter routed to provider for review and signature as per [facility] Urology refill protocol. documented in this encounter Plan of Treatment Not on filedocumented as of this encounter Visit Diagnoses Not on filedocumented in this encounter Care Teams Office Administrator Relationship Specialty Start Date End Date Agnieszka Phillips MD Consulting Physician Urology 07/02/20 [address] [place] [address] Mignon Shin ACNP Nurse Practitioner Urology 12/06/20 100 [facility] [address] [place] [address] documented as of this encounter
--- OUTSIDE RECORDS SUMMARY | 2021-12-28 17:37 | XMS_ITS | Encounter Summary ---
:1975 Author Organization [facility] Address [address] [place] [address] Care Team Providers Name Role Phone Agnieszka Phillips MD Unavailable Mignon Shin ACNP Unavailable Reason for Visit Reason Onset Date Comments Triage Routine 10/27/2021 Encounter Details Date Type Department Care Team Description 10/27/2021 Telephone [facility] Masoud Miller MD Triage Routine Neuro Spine [facility] [address] 1[address] Floor 1st [place] [address] [place] [phone] (Wo rk) Social History Tobacco Use [...] Telephone Encounter - Kinza Leach RN - 10/27/2021 10:50 AM EDRomulo: Triage Surgical History/Procedure ?? Surgery/OV/Specific Injection/procedure : Follow-up of spinal cord injury ?? Date: 11/22/20 ?? Surgeon/Provider: Dr. Miller ?? Current Clinical Question to be Answered: Question: Patient calling to schedule telehealth or telephone visit. ?? Spoke with the patient and she has asked if she could return to seeing Dr. Miller. She advises that she is still in [place] and will not be returning to [place]. She advises her FARM REPORTER recommended that a Telehealth be scheduled as she is unfamiliar with some of the concerns the patient has. Advised the patient that unfortunately, this office is unable to do telehealth visits outside of [place]. She verbalized an understanding. ?? Plan of Care: Per 03/18/21 encounter: Daysi Galvez Pt was scheduled for telehealth on April 04, but pt lives in [place]. Unable to do telehealth outof state. Phoned patient and had to LM that we could not do telehealth, but that Dr. Miller needs her to call with her new PCP's name and number, so that he can call him. I also LM that Dr. Miller will not be able to Rx any more meds for her now. ? elephone Encounter - Kinza Leach RN - 10/27/2021 9:53 AM EDTSummary: Triage Call placed to patient to discuss the message below, left message requesting a return call to #[phone]. Surgical History/Procedure Surgery/OV/Specific Injection/procedure : Follow-up of spinal cord injury Date: 11/22/20 Surgeon/Provider: Dr. Miller Current Clinical Question to be Answered: Question: Patient calling to schedule telehealth or telephone visit. ?? Pertinent Information/Interventions Tried: Current therapy program:(PT, HOME EXERCISE, OMT, etc) Plan of Care: Per 03/18/21 encounter: Daysi Galvez Pt was scheduled for telehealth on April 04, but pt lives in [place]. Unable to do telehealth outof state. Phoned patient and had to LM that we could not do telehealth, but that Dr. Miller needs her to call with her new PCP's name and number, so that he can call him. I also LM that Dr. Miller will not be able to Rx any more meds for her now. Nursing Notes: elephone Encounter - Kinza Leach RN - 10/27/2021 9:45 AM EDT ----- Message from Kinza Rao sent at 10/27/2021 9:17 AM EDT ----- [place] Question: Patient calling to schedule telehealth or telephone visit. Contact Number: [phone] Surgery/Procedure/Imaging: Last office visit: 11/22/20 documented in this encounter Plan of Treatment Not on filedocumented as of this encounter Visit Diagnoses Not on filedocumented in this encounter Care Teams Polymer Scientist Relationship Specialty Start Date End Date Agnieszka Phillips MD Consulting Physician Urology 07/02/20 [address] [place] [address] Mignon Shin ACNP Nurse Practitioner Urology 12/06/20 100 [facility] 100 [place] [address] documented as of this encounter
--- OUTSIDE RECORDS SUMMARY | 2021-12-28 17:37 | XMS_ITS | Encounter Summary ---
:1975 Author Organization [facility] Address [address] [place] [address] Care Team Providers Name Role Phone Telly Dietrich DO Primary Care Provider Unavailable Agnieszka Phillips MD Unavailable Reason for Visit Reason Comments Neurogenic Bladder Encounter Details Date Type Department Care Team Description 09/12/2020 Clinical Support [facility] Joyce Pavon RN Urology [address] [address] [phone] Social History Tobacco Use Types Packs/Day Years [...] Sign Reading Time Taken Comments Blood Pressure 130/75 09/12/2020 11:05 AM EST Pulse 91 09/12/2020 11:05 AM EST Temperature 36.9 ??C (98.4 ??F) 09/12/2020 11:05 AM EST Respiratory Rate - - Oxygen Saturation 100% 09/12/2020 11:05 AM EST Inhaled Oxygen Concentration 100% 09/12/2020 11:05 AM EST Weight - - Height - - Body Mass Index - - documented in this encounter Patient Instructions Patient InstructionsSJoyce phillip RN - 09/12/2020 12:03 PM EST [facility] Urology [address] [place], [place] [id number] Self-Catheterizing Instructions and Catheter Care Keep volume below 300mls INSTRUCTIONS: ?? This is a clean procedure not a sterile one. ?? Wash your hands and the genital area with soap and water. ?? Put lubrication (water based) on catheter ?? Spread the lips of your vulva. ?? To find your urethra without a mirror, place your last three fingers on your vagina, then feel for your urethra with your index finger. ?? Keeping the lips of the vulva spread,, insert, relax, take a deep breath, and bear down as if trying to urinate. ?? When urine begins to flow, stop inserting the catheter. ?? Once the catheter stops draining, slowly remove the catheter. Make sure you place a finger over the end of the catheter or keep over the toilet so that the remaining urine in the catheter does not dribble on the floor. CATHETER CARE: ?? You may reuse catheters for up to two weeks, unless you see that the catheter is breaking down. ?? Wash catheters with warm, mild soapy water, taking care to run water through the catheter to washany debris from inside the catheter. ?? Place catheter on towel, folding towel over catheter. This helps the catheter air dry without getting any dust in/on the catheter. ?? Should you have an active urinary tract infection, please start with a new catheter after you have been on an antibiotic for 48 hours. This will ensure that you do not re-infect your self. ?? Keep clean, dried catheter in clean ziplock bag. documented in this encounter Progress Notes Joyce Pavon RN - 09/12/2020 1:59 PM EST CLEAN INTERMITTENT CATHETERIZATION Pt presented today for CIC teaching. Pt's current finn catheter was draining clear yellow urine and was removed before starting procedure. The procedure was explained to the patient and questions were answered. Printed patient education materials were provided. Prescription for catheters and lubricant were issued. Patient did verbalize an understanding of the procedure, and was able to return demonstration. Clearyellow urine drained during demonstration. Patient comment or concerns: Pt stated she is confident she will be able to CIC at home. Pt states she is in a support group on social media and has learned some tricks to being able to be successful with this as well. Pt has children at home that may be able to assist with this too. Patient was provided with additional supplies at the time of the visit. Provided pt with female CIC catheters. Male CIC catheters were also given to the pt with a finn bag to attach to so pt is able to drain right into the bag while CICing. Will order CIC catheters with bags attached to make it easier for the pt as well- reviewed this withthe pt. Advised pt to call the office with any questions or concerns. documented in this encounter Plan of Treatment Not on filedocumented as of this encounter Visit Diagnoses Diagnosis Neurogenic bladder - Primary Neurogenic bladder, NOS documented in this encounter Care Teams Pediatric Oncologist Relationship Specialty Start Date End Date Telly Dietrich DO PCP - General Family Medicine 04/22/20 Agnieszka Phillips MD Consulting Physician Urology 07/02/20 [address] [place] [address] documented as of this encounter
--- OUTSIDE RECORDS SUMMARY | 2021-12-28 17:37 | XMS_ITS | Encounter Summary ---
:1975 [facility] Address [address] [place] [address] Care Team Providers Name Role Phone Agnieszka Phillips MD Unavailable Mignon Shin ACNP Unavailable Reason for Visit Reason Comments Medications Refill Encounter Details Date Type Department Care Team Description 04/29/2021 Refill [facility] Penny Muse, PAC Urology [address] [place] [address] [place], [place] [phone] Social History Tobacco Use Types Packs/Day Years [...] Telephone Encounter - Anne Fernandez MA - 04/29/2021 8:19 AM EDT [facility] [facility] [place] [facility] [place] Medication Requested: Oxybutynin 10 mg take 1 tab daily Quantity and # of refills: #90 refills 2 Date of Last Refill:12/09/2020 #90 refills 1 Last OV: 12/06/2020 Pending appts: None Approved and sent E-prescibed to their pharmacy. documented in this encounter Plan of Treatment Not on filedocumented as of this encounter Visit Diagnoses Not on filedocumented in this encounter Care Teams Automotive Generator Repairer Relationship Specialty Start Date End Date Agnieszka Phillips MD Consulting Physician Urology 07/02/20 100 [place] [address] Mignon Shin ACNP Nurse Practitioner Urology 12/06/20 100 [facility] 100 [place] [address] documented as of this encounter
--- OUTSIDE RECORDS SUMMARY | 2021-12-28 17:37 | XMS_ITS | Encounter Summary ---
:1975 Author Organization [facility] Address [address] [place] [address] Care Team Providers Name Role Phone Pcp, No Unavailable Unavailable Telly Dietrich DO Primary Care Provider Unavailable Reason for Visit Reason Onset Date Comments Management Of Care 06/05/2020 Encounter Details Date Type Department Care Team Description 06/05/2020 Telephone [facility] NEURO SP [address] [facility] Masoud Miller, Management Of Care [address] [address] 1st Floor [phone] [place] [address] (Wo rk) Social History Tobacco [...] Notes Telephone Encounter - Daysi Galvez - 06/05/2020 1:04 PM EST Received a VM from Berenice, Occupational Therapist at [facility]. She states she has been seeing Gerdaand lately she has had some achiness and tightening in the scapula area. She has told the patient that if this continues or if she has concerns, she is to call Dr. Miller's office. documented in this encounter Plan of Treatment Not on filedocumented as of this encounter Visit Diagnoses Not on filedocumented in this encounter Care Teams Fur Cutter Relationship Specialty Start Date End Date Pcp, No PCP - Generic [facility] 02/10/20 PCP Telly Dietrich DO PCP - General Family Medicine 04/22/20 documented as of this encounter
--- OUTSIDE RECORDS SUMMARY | 2021-12-28 17:37 | XMS_ITS | Encounter Summary ---
:1975 Author Organization [facility] Address [address] [place] [address] Care Team Providers Name Role Phone Pcp, No Unavailable Unavailable Telly Dietrich DO Primary Care Provider Unavailable Agnieszka Phillips MD Unavailable Reason for Referral Radiology Services (Routine) - Closed Specialty Diagnoses / Procedures Referred By Contact Refer red To Contact Radiology Diagnoses Neurogenic bladder Agnieszka Phillips MD [facility] Bid Us Img Procedures US RETROPERITONEAL COMPLETE [address] [place] [address] [place] [address] [address] [place] [address] Phone: Fax: Referral ID Status Reason Start Date Expiration Date Visits Requ ested Visits Authorized [id number] Closed 07/11/2020 07/11/2021 1 1 Reason for Visit Radiology Services (Routine) - Closed Specialty Diagnoses / Procedures Referred By Contact Refer red To Contact Radiology Diagnoses Neurogenic bladder Agnieszka Phillips MD [facility] Bid Us Img Procedures US RETROPERITONEAL COMPLETE [address] [place] [address] [address] [place] [address] Phone: Fax: Referral ID Status Reason Start Date Expiration Date Visits Requ ested Visits Authorized [id number] Closed 07/11/2020 07/11/2021 1 1 Encounter Details Date Type Department Care Team Description 07/25/2020 Hospital Encounter [facility] Ultrasound Felix Phillips MD [place] [address] [place] [address] [place] [address] [address] [facility] [place] [address] Social History Tobacco Use Types Packs/Day Years [...] Sig Dispensed Refills Start Date End Date gabapentin 300 MG Cap TAKE 1 CAPSULE BY MOUTH 0 0 07/24/2020 EVERY 8 HOURS DIRECTED Baclofen 5 MG Tab TAKE 1 TO 2 TABLETS 3 0 020 TIMES DAILY NEEDED escitalopram 5 MG Tab Take 1 Tab (5 mg total) 30 Tab 3 0 03/15/2020 by mouth daily documented as of this encounter Plan of Treatment Not on filedocumented as of this encounter Procedures Procedure Name Priority Date/Time Associated Comments Diagnosis US RETROPERITONEAL Routine 07/25/2020 3:09 Neurogenic bladder Results for this COMPLETE PM EST procedure are i n the results section. documented in this encounter Results US Retroperitoneal Complete (07/25/2020 3:09 PM EST) Anatomical Region Laterality Modality Abdomen, Pelvis Ultrasound Specimen (Source) Anatomical Collection Method Collection Time Re ceived Time Location / / Volume Laterality 07/25/2020 3:00 PM EST Narrative RADIOLOGY - 07/25/2020 4:15 PM EST EXAM: US RETROPERITONEAL COMPLETE INDICATION: neurogenic bladder, evaluate for hydronephrosis COMPARISON: None. TECHNIQUE: Grayscale sonographic images were obtained of the retroperitoneum. FINDINGS: The right kidney measures 11.8 cm in lala gth. There is a normal pattern of echogenicity with no shadowing renal calculus, hydronephrosis, cortical thinning or perinephric fluid collection. The left kidney measures 11.7 cm in ricardo th. There is a normal pattern of echogenicity with no shadowing renal calculus, hydronephrosis, cortical thinning or perinephric fluid collection. Bladder: Decompressed with Snow cathete r in place. IMPRESSION: No hydronephrosis. Unremarka ble retroperitoneal ultrasound of the kidneys and bladder. * * ??THIS IS AN ELECTRONICALLY VERIFIED REPORT CREATED USING VOICE RECOGNITION * * 07/25/2020 4:13 PM ??Ap Rosales DO Procedure Note Ap Rosales DO - 07/25/2020 EXAM: US RETROPERITONEAL COMPLETE INDICATION: neurogenic bladder, evaluate for hydronephrosis COMPARISON: None. TECHNIQUE: Grayscale sonographic images were obtained of the retroperitoneum. FINDINGS: The right kidney measures 11.8 cm in lala gth. There is a normal pattern of echogenicity with no shadowing renal calculus, hydronephrosis, cortical thinning or perinephric fluid collection. The left kidney measures 11.7 cm in ricardo th. There is a normal pattern of echogenicity with no shadowing renal calculus, hydronephrosis, cortical thinning or perinephric fluid collection. Bladder: Decompressed with Snow cathete r in place. IMPRESSION: No hydronephrosis. Unremarka ble retroperitoneal ultrasound of the kidneys and bladder. * * THIS IS AN ELECTRONICALLY VERIFIED R EPORT CREATED USING VOICE RECOGNITION * * 07/25/2020 4:13 PM Ap Rosales DO Agnieszka Phillips MD [facility] ORDERABLES Performing Organization Address City/State/ZIP Code Phon e Number [facility] RADIOLOGY documented in this encounter Visit Diagnoses Diagnosis Neurogenic bladder Neurogenic bladder, NOS documented in this encounter Care Teams Automobile Seat Cover Installer Relationship Specialty Start Date End Date Pcp, No PCP - Generic [facility] 02/10/20 PCP Telly Dietrich DO PCP - General Family Medicine 04/22/20 Agnieszka Phillips MD Consulting Physician Urology 07/02/20 [address] [place] [address] documented as of this encounter
--- OUTSIDE RECORDS SUMMARY | 2021-12-28 17:37 | XMS_ITS | Encounter Summary ---
:1975 Author Organization [facility] Address [address] [place] [address] Care Team Providers Name Role Phone Pcp, No Unavailable Unavailable Encounter Details Date Type Department Care Team Description 03/18/2020 Hospital Encounter [facility] - Barney Brink MD [address] [facility] [address] [place] [address] [place] [address] [phone] (Wo rk) Social History Tobacco Use Types [...] Sig Dispensed Refills Start Date End Date escitalopram 5 MG Tab Take 1 Tab (5 mg total) 30 Tab 3 0 03/15/2020 by mouth daily documented as of this encounter Plan of Treatment Not on filedocumented as of this encounter Procedures Procedure Name Priority Date/Time Associated Diagnosis Comme nts XR SPINE THORACIC 2 Routine 03/18/2020 3:48 PM Back pain, Re sults for this VW EDT unspecified back procedure a re in location, the results unspecified back section. pain laterality, unspecified chronicity documented in this encounter Results XR Spine Thoracic 2 VW (03/18/2020 3:48 PM EDT) Anatomical Region Laterality Modality C-spine, T-spine, L-spine, Chest Compute d Radiography Specimen (Source) Anatomical Collection Method Collection Time Re ceived Time Location / / Volume Laterality 03/18/2020 3:15 PM EDT Narrative [facility] RADIOLOGY - 03/18/2020 5:08 PM EDT EXAM: XR SPINE THORACIC INDICATION: ??Increased back pain after surgery ?? ###[facility]### [facility] Priority FAX [id number]# COMPARISON: 02/15/2020 MRI, 02/15/2020 CT, 02/11/2020 CT TECHNIQUE: Two views of the thoracic spi ne were obtained. FINDINGS: There is posterior thoracic fu dolly from T3 through T8, for treatment of a complex unstable thoracic fractures centered at T5 and T6. There is mild loss of vertebral body height at T6, but this is unchanged. Surgical hardware is intact. Accounting for differences in technique, there is no significant interval change compared to the postoperative imaging on 02/15/2020. The anterior aspect of the pedicle screw s at T3 and T4 extend beyond the anterior margin of the T3 and T4 vertebral bodies, but this is not significantly changed. Thoracic alignment appears significantly changed compared to priors. IMPRESSION: Postsurgical findings in the upper thora cic spine status post fusion from T3 through T8 in setting of known T5 and T6 fractures, not significantly changed compared to prior cross-sectional postoperative imaging on 02/15/2020, accounting for di fferences in technique. Please see discussion above regarding the T3 and T4 pedicle screws. * * ??THIS IS AN ELECTRONICALLY VERIFIED REPORT CREATED USING VOICE RECOGNITION * * 03/18/2020 5:06 PM ??Carlene Vanegas MD Procedure Note Carlene Vanegas MD - 03/18/2020 EXAM: XR SPINE THORACIC INDICATION: Increased back pain after qouendo rgery ###[facility]### [facility] Priority FAX [id number]# COMPARISON: 02/15/2020 MRI, 02/15/2020 CT, 02/11/2020 CT TECHNIQUE: Two views of the thoracic spi ne were obtained. FINDINGS: There is posterior thoracic fu dolly from T3 through T8, for treatment of a complex unstable thoracic fractures centered at T5 and T6. There is mild loss of vertebral body height at T6, but this is unchanged. Surgical hardware is intact. Accounting for differences in technique, there is no significant interval change compared to the postoperative imaging on 02/15/2020. The anterior aspect of the pedicle screw s at T3 and T4 extend beyond the anterior margin of the T3 and T4 vertebral bodies, but this is not significantly changed. Thoracic alignment appears significantly changed compared to priors. IMPRESSION: Postsurgical findings in the upper thora cic spine status post fusion from T3 through T8 in setting of known T5 and T6 fractures, not significantly changed compared to prior cross-sectional postoperative imaging on 02/15/2020, accounting for differences in technique. Please see discussion above regarding the T3 and T4 pedicle screws. * * THIS IS AN ELECTRONICALLY VERIFIED R EPORT CREATED USING VOICE RECOGNITION * * 03/18/2020 5:06 PM Carlene Vanegas MD Barney Anguiano MD IMG DIAGNOSTIC IMAGING ORDER BUDDY Performing Organization Address City/State/ZIP Code Phon e Number RADIOLOGY documented in this encounter Visit Diagnoses Diagnosis Back pain, unspecified back location, un specified back pain laterality, unspecified chronicity documented in this encounter Care Teams Commis Chef Relationship Specialty Start Date End Date Pcp, No PCP - Generic [facility] PCP 02/10/20 07/29/20 documented as of this encounter
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
--- OUTSIDE RECORDS SUMMARY | 2021-12-28 17:37 | XMS_ITS | Encounter Summary ---
:1975 Author Organization [facility] Address [address] [place] [address] Care Team Providers Name Role Phone Pcp, No Unavailable Unavailable Telly Dietrich DO Primary Care Provider Unavailable Reason for Visit Reason Onset Date Comments Management Of Care 05/08/2020 Encounter Details Date Type Department Care Team Description 05/08/2020 Telephone [facility] NEURO SP [address] [facility] Masoud Miller, Management Of Care [address] [address] 1st Floor [phone] [place] [address] (Wo rk) Social History Tobacco [...] Telephone Encounter - Kinza Leach RN - 05/08/2020 5:28 PM EST Spoke with the patient and reviewed the message below and she verbalized an understanding. She has asked about the referral to urology. Advised her that the referral was placed on 05/03/2020. elephone Encounter - Masoud Miller MD - 05/08/2020 4:51 PM EST I was waiting to hear from Dr. Thomas. Yes, she does require flexion and extension x-rays at 3 months. I just ordered these for [facility]. Once completed, I will review with Dr. Thomas and be in touch with her with regard to whether she can stop wearing the collar. They will be calling her to schedule. The x-rays have to be done after May 13 Telephone Encounter - Masoud Miller MD - 05/08/2020 4:50 PM EST ----- Message from Amira Hebert sent at 05/08/2020 11:06 AM EST ----- Regarding: Cervical Xray Patient is checking on a Cervical Xray that she said was going to order for her to be [facility]. Nothing in her chart will send message to and Daysi documented in this encounter Plan of Treatment Not on filedocumented as of this encounter Results XR Spine Cervical 2 Or 3 VW (05/16/2020 12:21 PM EST) Anatomical Region Laterality Modality C-spine Computed Radiography Specimen (Source) Anatomical Collection Method Collection Time Re ceived Time Location / / Volume Laterality 05/16/2020 2:00 PM EST Narrative [facility] RAD[facility]OLOG[facility] - 05/16/2020 2:32 PM EST EXAM: XR SPINE CERVICAL 2 OR 3 VW INDICATION: Follow-up of spinal fracture and ligamentous injury ??STUDY NOTES: ??Follow up today, feeling better today than before, reports no pain in cervical area however pain in thoracic area instead COMPARISON: Cervical spine MRI from 02/[address] from 02/15/2020. TECHNIQUE: ??Three view(s) of the cervic al spine were obtained. FINDINGS: Bony structures are normally m ineralized. The cervical spine demonstrates a normal alignment. Vertebral segments demonstrate a normal configuration. There is no evidence of acute fracture. Patient has a known C6 vertebral fracture of the posterior elements, not well evaluated o n these radiographs. There are postsurgical changes from multilevel fusion of the thoracic spine. There is no evidence of segmental motion or instability on flexion or extension views. IMPRESSION: No acute osseous abnormality identified. Patient has a history of known C6 posterior element fracture, not well evaluated on this radiograph. No evidence of segmental instability on flexion or extension views. * * ??THIS IS AN ELECTRONICALLY VERIFIED REPORT CREATED USING VOICE RECOGNITION * * 05/16/2020 2:30 PM ??Ap Rosales DO Procedure Note Ap Rosales DO - 05/16/2020 EXAM: XR SPINE CERVICAL 2 OR 3 VW INDICATION: Follow-up of spinal fracture and ligamentous injury STUDY NOTES: Follow up today, feeling better today than before, reports no pain in cervical area however pain in thoracic area instead COMPARISON: Cervical spine MRI from 02/[address] from 02/15/2020. TECHNIQUE: Three view(s) of the cervical spine were obtained. FINDINGS: Bony structures are normally m ineralized. The cervical spine demonstrates a normal alignment. Vertebral segments demonstrate a normal configuration. There is no evidence of acute fracture. Patient has a known C6 vertebral fracture of the posterior elements, not well evaluated o n these radiographs. There are postsurgical changes from multilevel fusion of the thoracic spine. There is no evidence of segmental motion or instability on flexion or extension views. IMPRESSION: No acute osseous abnormality identified. Patient has a history of known C6 posterior element fracture, not well evaluated on this radiograph. No evidence of segmental instability on flexion or extension views. * * THIS IS AN ELECTRONICALLY VERIFIED R EPORT CREATED USING VOICE RECOGNITION * * 05/16/2020 2:30 PM Ap Rosales DO Masoud Miller MD IM DIAGNOSTIC IMAGING ORDER BUDDY Performing Organization Address City/State/ZIP Code Phon e Number RADIOLOGY documented in this encounter Visit Diagnoses Diagnosis Closed nondisplaced fracture of sixth ce rvical vertebra, unspecified fracture morphology, initial encounter ([facility] - Primary Closed nondisplaced fracture of sixth ce rvical vertebra, unspecified fracture morphology, initial encounter ([facility] documented in this encounter Care Teams Microfiche Camera Operator Relationship Specialty Start Date End Date Pcp, No PCP - Generic [facility] 02/10/20 PCP Telly Dietrich DO PCP - General Family Medicine 04/22/20 documented as of this encounter
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
--- OUTSIDE RECORDS SUMMARY | 2021-12-28 17:37 | XMS_ITS | Encounter Summary ---
:1975 Author Organization [facility] Address [address] [place] [address] Care Team Providers Name Role Phone Agnieszka Phillips MD Unavailable Mignon Shin [facility] Unavailable Reason for Visit Reason Onset Date Comments Updates 03/11/2021 Signed DEN Encounter Details Date Type Department Care Team Description 03/11/2021 Telephone [facility] Elver Phillips MD Updates (Signed DEN ) Urology [address] [place] [address] [place], [place] [phone] Social History Tobacco Use Types Packs/Day Years [...] this encounter Miscellaneous Notes Telephone Encounter - Kristina Calloway - 03/11/2021 3:58 PM EDT Received patient's signed DEN today in the mail. I have printed off all of the patient's records from our office and faxed to [facility] Attn: . documented in this encounter Plan of Treatment Not on filedocumented as of this encounter Visit Diagnoses Not on filedocumented in this encounter Care Teams Mine Motor Operator Relationship Specialty Start Date End Date Agnieszka Phillips MD Consulting Physician Urology 07/02/20 [address] [place] [address] Mignon Shin ACNP Nurse Practitioner Urology 12/06/20 100 [facility] [address] [place] [address] documented as of this encounter
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
--- OUTSIDE RECORDS SUMMARY | 2021-12-28 17:37 | XMS_ITS | Encounter Summary ---
:1975 Author Organization [facility] Address [address] [place] [address] Care Team Providers Name Role Phone Agnieszka Phillips MD Unavailable Mignon Shin [facility] Unavailable Reason for Visit Reason Onset Date Comments Updates 02/27/2021 Request for Medical Records Encounter Details Date Type Department Care Team Description 02/27/2021 Telephone [facility] Mignon Shin, Updates (Request for Urology [facility] Medical Records ) [address] [place], [place] [address] [place], [place] [phone] (Wo rk) Social History Tobacco Use Types [...] Miscellaneous Notes Telephone Encounter - Kristina Calloway Lani - 02/27/2021 1:19 PM EDT Patient called to advise that she is transferring care and needs her records faxed to another practice. I advised her I would mail her out a DEN today and she can mail or fax it back to us and we can then release all her records. Patient stated she has moved to [place] and provided me her new address to mail the DEN. New Address [address] [place] [id number] Mailed out DEN to patient today per her request. documented in this encounter Plan of Treatment Not on filedocumented as of this encounter Visit Diagnoses Not on filedocumented in this encounter Care Teams Rail Switch Operator Relationship Specialty Start Date End Date Agnieszka Phillips MD Consulting Physician Urology 07/02/20 [address] [place] [address] Mignon Shin ACNP Nurse Practitioner Urology 12/06/[address] [facility] [address] [place] [address] documented as of this encounter
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
[2021-12-28 17:58] VITALS: RESP 18
--- NOTE | 2021-12-28 18:00 | RT.EKG_ITS ---
APPROVED REPORT Exam: Resting ECG Reason for Exam: dizziness Patient Location: E HR:124 bpm ECG Measurements Heart Rate 124 AXIS IA 140 P 44 QRSd 105 QRS 29 QT 304 T 16 QTc 437 Conclusion Sinus tachycardia...rate> 99 Borderline T abnormalities, diffuse leads...T flat/neg. Sinus. Normal axis. No STEMI. I have reviewed and interpreted ECG and agree with software generated interpretation.
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
[2021-12-28 18:18] LABS: Abs Immature Grans 0.06 10^3/uL (0.0-0.06); Absolute Basophil Count 0.04 10^3/uL (0.0-0.2); Absolute Eosinophil Count 0.04 10^3/uL (0.0-0.7); Absolute Monocyte Count 0.35 10^3/uL (0.1-0.8); Absolute Neutrophil Count 11.74 10^3/uL (1.2-6.7); Basophils % 0.3; Eosinophils % 0.3; HCT 41.6 % (36.0-46.0); HGB 13.6 g/dL (11.2-15.7); Immature Grans % 0.5; Lymphocytes % 3.2; MCH 30.6 pg (27.0-33.0); MCHC 32.7 % (32.0-36.0); MCV 94 fL (80-95); MPV 8.6 fL (8.0-11.0); Monocytes % 2.8; Neutrophils % 92.9; Platelet Count 258 10^3/uL (130-400); RBC 4.45 10^6/uL (3.93-5.22); RDW 12.6 % (11.7-14.6); RDW-SD 43.5 fL; WBC 12.64 10^3/uL (4.4-10.8)
--- NOTE | 2021-12-28 18:25 | DI.RAD_ITS ---
Exam(s) XR PORTABLE CHEST AP EXAM: XR PORTABLE CHEST AP CLINICAL HISTORY: cough, r/o acute disease. TECHNIQUE: 2D digital imaging was performed. COMPARISON: No exams were available for comparison FINDINGS: Single AP portable view. There is fusion hardware in the upper-mid thoracic spine level. Heart size is upper normal. The mediastinum is not widened. Lungs are clear. No infiltrates nor obvious pleural effusions. IMPRESSION: No acute pulmonary findings on this single AP portable view of the chest. DATA REPOSITORY: RADIATION DOSE DELIVERED: All CT scans at this facility use at least one of these dose optimization techniques: automated exposure control; mA and/or kV adjustment per patient size (includes targeted e xams where dose is matched to clinical indication); or iterative reconstruction.
[2021-12-28 18:30] LABS: ALT 82 U/L (14-59); AST 27 U/L (15-37); Albumin 3.7 g/dL (3.4-5.0); Alkaline Phosphatase 89 U/L (46-116); Anion Gap 8.4 mmol/L (3-11); BUN 9 mg/dL (7-18); Bilirubin, Total 0.4 mg/dL (0.2-1.0); CO2 26.6 mmol/L (21.0-32.0); CREATININE 0.6 mg/dL (0.55-1.02); Calcium 8.9 mg/dL (8.5-10.1); Chloride 102 mmol/L (98-107); Glucose 120 mg/dL (74-106); Potassium 3.5 mmol/L (3.5-5.1); Sodium 137 mmol/L (136-145); Total Protein 7.6 g/dL (6.4-8.2)
[2021-12-28] MEDS: Normal Saline 1,000 ML 1000 ML IV (18:30)
--- NOTE | 2021-12-28 18:43 | DI.VRAD_ITS ---
PROCEDURE INFORMATION: Exam: XR Chest Exam date and time: 12/28/2021 6:08 PM Age: 46 years old Clinical indication: Patient HX: Cough, R/O acute disease TECHNIQUE: Imaging protocol: Radiologic exam of the chest. Views: 1 view. COMPARISON: CT CHEST PE ABD PELVIS W 04/14/2021 6:51 PM FINDINGS: Lungs: There is no evidence of focal pulmonary consolidation. The pulmonary vasculature is normal. Pleural spaces: There is no evidence of pneumothorax. There are no pleural effusions present. Heart/Mediastinum: The cardiac silhouette is within normal limits. The mediastinum is normal. Bones/joints: Posterior spinal fusion present within the upper and midthoracic spine. The spine, sternum, ribs, and pectoral girdles show no evidence of acute abnormality Other findings: There are no soft tissue masses or calcifications. IMPRESSION: No active cardiopulmonary disease. Dictated and Authenticated by: Franck Dowell MD. Ordering:KHADAR Medrano MD
[2021-12-28 18:49] LABS: COVID-19 PCR Negative (Negative); Influenza A PCR Negative (Negative); Influenza B PCR Negative (Negative); RSV PCR Negative (Negative)
[2021-12-28 19:06] LABS: Bilirubin Negative (Negative); Blood Negative (Negative); Clarity Clear (Clear); Glucose Negative (Negative); Ketones Negative (Negative); Leukocyte Esterase Trace (Negative); Nitrite Negative (Negative); Specific Gravity <= 1.005 (1.005-1.025); Urobilinogen 0.2 EU/dL (Up TO 0.2)
[2021-12-28 19:17] LABS: Epithelial Cells Rare HPF (Negative); RBC 0-2 HPF (0-2)
[2021-12-28 19:19] LABS: Bacteria Many HPF (Negative); C & S Indicated? Yes; Crystals Negative HPF (Negative); Mucus Negative (Negative)
[2021-12-28] MEDS: Normal Saline Flush 10 ML SYR IVP (19:41)
[2021-12-28] MEDS: Ketorolac 30 MG/ML VIAL IVP (19:41)
[2021-12-28 19:52] VITALS: TEMP 36.6
[2021-12-28] MEDS: Ciprofloxacin 500 MG TAB PO (20:32)
[2021-12-28 20:33] VITALS: BP 116/54; PULSE 102; RESP 16; TEMP 36.9; O2SAT 97
[2021-12-28 20:46] VITALS: BP 116/54; PULSE 102; RESP 16; TEMP 36.9; O2SAT 97
--- NOTE | 2021-12-29 20:14 | ED.PROG_ITS ---
Date of service: 12/29/21 Time of Service: 20:14 Medical Decision Making Positive blood culture from last visit growing gram-positive cocci, patient's urine culture also came back positive for E. coli susceptible to ciprofloxacin. Patient was discharged on Cipro. Was able to contact patient at home she is fee ling much better today no fevers no chills no nausea no vomiting. Counseled her that this could be caused by contaminant during blood draw however we do not want to risk missing a true positive blood culture, recommend the patient return to the emergency department for repeat examination and blood work. Patient endorses that she will return tomorrow morning for repeat blood culture and assessment. Discharge Plan Disposition Patient Disposition: HOME Condition: Stable Discharge Details Clinical Impression: Pyelonephritis Primary Care Provider: Samra Holm ED Provider: Marcela Thompson [place] Meds and New Rx's Prescriptions: New ciprofloxacin HCl 500 mg tablet 500 mg PO BID 7 Days Qty: 14 0RF Continued ascorbic acid (vitamin C) 1,000 mg tablet 1 g PO Q6H d-mannose 500 mg capsule PO gabapentin 300 mg capsule 300 - 600 mg PO BID PRN (Reason: nerve pain) Qty: 180 3RF polyethylene glycol 3350 [Miralax] 17 gram/dose powder 17 g PO BID PRN (Reason: constipation) Qty: 850 6RF cholecalciferol (vitamin D3) 50 mcg (2,000 unit) capsule 50 mcg PO DAILY Qty: 90 3RF docusate sodium 100 mg tablet 100 mg PO BID Qty: 180 3RF escitalopram oxalate 5 mg tablet 5 mg PO DAILY Qty: 90 3RF oxybutynin chloride 10 mg tablet extended release 24hr 10 mg PO DAILY Qty: 90 3RF methenamine hippurate 1 gram tablet 1 g PO BID Qty: 180 3RF solifenacin 5 mg tablet 5 mg PO DAILY Qty: 90 0RF Rx Instructions: (replaces Myrbetriq) mirabegron 50 mg tablet extended release 24 hr 50 mg PO DAILY Qty: 30 1RF oxycodone 5 mg tablet 5 mg PO BID MDD 10mg PRN (Reason: pain) Qty: 60 0RF Discharge Instructions Instructions: Kidney Infection (ED) Additional Instructions: Your lab work today revealed that the source of your symptoms may be a urinary tract infection. Your COVID and flu test today is negative. Your lab work otherwise is reassuring and shows no evidence of acute concerning or significant findings. A prescription for Ciprofloxacin has been sent electronically to your pharmacy to take as directed until finished. Drink plenty of fluids and get plenty of rest. Alternate tylenol and motrin as needed and directed for pain. Follow-up with your primary care doctor in 1 week. Return to the emergency department with any worsening or new concerning symptoms for worsening fever, pain, persistent vomiting or any other concerns for reevaluation and consideration for additional imaging at that time if indicated. Discharge Data Discharge Date/Time-TO BE ENTERED AT DEPARTURE: 12/28/21 20:47 Discharge Physician: Marcela Thompson
== END 2021-12-28 20:47 | disposition home or self-care (01) ==
PROVIDERS: Emergency Provider Physician Assistant
DX: N10 Acute pyelonephritis (principal); R42 Dizziness and giddiness; R05.1 Acute cough; B96.20 Unspecified Escherichia coli [E. coli] as the cause of diseases classified elsewhere; R78.81 Bacteremia
CPT/HCPCS: 36415; 80053; 87040; 87077; 87637; 93005; 96361; 96374; 99284; 71045; 81003; 81015; 85025; 87086; 87186; 93010; J1885

== ENCOUNTER 2021-12-30 08:17 | Emergency (ER) | payer OTHER, MEDICAID, SELFPAY ==
[2021-12-30 08:20] VITALS: BP 115/74; PULSE 76; RESP 16; TEMP 36.7; O2SAT 100
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
[2021-12-30 08:50] LABS: Lactate 1.2 mmol/L (0.6-1.4)
[2021-12-30 08:54] LABS: Abs Immature Grans 0.07 10^3/uL (0.0-0.06); Absolute Basophil Count 0.05 10^3/uL (0.0-0.2); Absolute Eosinophil Count 0.15 10^3/uL (0.0-0.7); Absolute Lymphocyte Count 0.83 10^3/uL (1.2-3.4); Absolute Monocyte Count 0.55 10^3/uL (0.1-0.8); Basophils % 1.1; Eosinophils % 3.4; HCT 39.5 % (36.0-46.0); HGB 12.8 g/dL (11.2-15.7); Immature Grans % 1.6; Lymphocytes % 18.7; MCH 30.8 pg (27.0-33.0); MCHC 32.4 % (32.0-36.0); MCV 95 fL (80-95); MPV 8.7 fL (8.0-11.0); Monocytes % 12.4; Neutrophils % 62.8; Platelet Count 229 10^3/uL (130-400); RBC 4.16 10^6/uL (3.93-5.22); RDW-SD 45.2 fL; WBC 4.45 10^3/uL (4.4-10.8)
[2021-12-30 09:15] LABS: ALT 105 U/L (14-59); AST 50 U/L (15-37); Albumin 3.5 g/dL (3.4-5.0); Alkaline Phosphatase 75 U/L (46-116); Anion Gap 5.9 mmol/L (3-11); BUN 7 mg/dL (7-18); Bilirubin, Total 0.2 mg/dL (0.2-1.0); CO2 28.1 mmol/L (21.0-32.0); CREATININE 0.5 mg/dL (0.55-1.02); Chloride 106 mmol/L (98-107); Glucose 90 mg/dL (74-106); Potassium 3.5 mmol/L (3.5-5.1); Sodium 140 mmol/L (136-145); Total Protein 7.4 g/dL (6.4-8.2)
== END 2021-12-30 09:42 | disposition home or self-care (01) ==
PROVIDERS: Emergency Provider Registered Nurse Emergency
DX: R78.81 Bacteremia (principal); N39.0 Urinary tract infection, site not specified
CPT/HCPCS: 36415; 80053; 87040; 99281; 83605; 85025; 99282

== ENCOUNTER 2022-03-04 16:54 | Outpatient (REF) | payer OTHER, MEDICAID, SELFPAY ==
[2022-03-04 20:24] LABS: Bacteria Many HPF (Negative); Epithelial Cells Rare HPF (Negative); RBC >50 HPF (0-2); WBC >50 HPF (0-5)
[2022-03-04 20:25] LABS: C & S Indicated? C&S Done As Ordered; Crystals Many Amorphous HPF (Negative); Mucus Negative (Negative)
== END 2022-03-04 16:55 | disposition home or self-care (01) ==
LOC: LBN 16:54
PROVIDERS: Visit Provider Urology
DX: R39.89 Other symptoms and signs involving the genitourinary system (principal)
CPT/HCPCS: 87077; 81015; 87086; 87186

== ENCOUNTER 2022-03-22 13:22 | Outpatient (REF) | payer OTHER, MEDICAID, SELFPAY ==
[2022-03-22 14:16] LABS: Bilirubin Negative (Negative); Blood Moderate (Negative); Clarity Cloudy (Clear); Glucose Negative (Negative); Ketones Negative (Negative); Leukocyte Esterase Large (Negative); Nitrite Positive (Negative); Specific Gravity 1.025 (1.005-1.025); Urobilinogen 0.2 EU/dL (Up TO 0.2)
[2022-03-22 14:23] LABS: Bacteria Many HPF (Negative); WBC >50 HPF (0-5)
[2022-03-22 14:24] LABS: C & S Indicated? Yes
== END 2022-03-22 13:23 | disposition home or self-care (01) ==
LOC: LBN 13:22
PROVIDERS: Visit Provider Nurse Practitioner
DX: R30.0 Dysuria (principal); R82.998 Other abnormal findings in urine
CPT/HCPCS: 87077; 81003; 81015; 87086; 87186

== ENCOUNTER → 2022-04-02 03:07 | Outpatient (CLI) | payer OTHER, MEDICAID, SELFPAY ==
--- NOTE | 2022-04-02 11:30 | DI.MAMMO_ITS ---
Exam(s) MG MAMMO SCREENING 60 MIN DUR EXAM: MG MAMMO SCREENING 60 MIN DUR CLINICAL HISTORY: breast cancer screening,z12.39. TECHNIQUE: Bilateral full field digital CC and MLO mammographic images were obtained with 3D tomosyn thesis and utilizing computer aided detection (CAD). COMPARISON: Prior outside mammogram November 2020 FINDINGS: There has been no significant change in the appearance and distribution of fibroglandular tissue. There are no new spiculated masses nor malignant appearing microcalcification groups. There is no significant architectural distortion nor skin thickening-retraction. IMPRESSION: No radiographic evidence of malignancy. BI-RADS Category 1 - Negative Breast Density - Category B - Scattered areas of fibroglandular density Breast density Category C or D implies that the patient has dense breast tissue. Dense breast tissue can make it harder to find cancer on a mammogram. Dense breast tissue is also associated with an incr eased risk of breast cancer. This information about the result of the mammogram report was provided to the patient to raise their awareness. Use this report when you speak with the patient about their risks for breast cancer, which includes their family history. At that time, you may recommend additional screening tests (Ultrasoun d or MRI) as these tests may add significant information. A negative radiographic report should not delay biopsy if a dominant or clinically suspicious mass is present. Up to ten percent of cancers are not identified on mammography. A negative report may reinforce clinical impression. Adenosis and dense breasts may obscure an underlying neoplasm. False positive reports average 6 to 10%. Patient will receive a letter notifying them of these results.
== END ==
DX: Z12.31 Encounter for screening mammogram for malignant neoplasm of breast (principal)
CPT/HCPCS: 77063; 77067

== ENCOUNTER 2022-04-13 16:54 | Outpatient (REF) | payer OTHER, MEDICAID, SELFPAY ==
[2022-04-13 17:46] LABS: Bilirubin Negative (Negative); Blood Negative (Negative); Clarity Cloudy (Clear); Glucose Negative (Negative); Ketones Negative (Negative); Leukocyte Esterase Large (Negative); Nitrite Negative (Negative); Specific Gravity 1.015 (1.005-1.025); Urobilinogen 0.2 EU/dL (Up TO 0.2)
[2022-04-13 18:39] LABS: Bacteria Moderate HPF (Negative); Crystals Negative HPF (Negative); Epithelial Cells Negative HPF (Negative); Other Cells Few Transitional (Negative); RBC Negative HPF (0-2); WBC >50 HPF (0-5)
[2022-04-13 18:40] LABS: C & S Indicated? Yes; Mucus Negative (Negative)
== END 2022-04-13 16:55 | disposition home or self-care (01) ==
LOC: LBN 16:54
PROVIDERS: Family Medicine; Visit Provider Urology
DX: R30.0 Dysuria (principal); R82.998 Other abnormal findings in urine
CPT/HCPCS: 87077; 81003; 81015; 87086; 87186

== ENCOUNTER 2022-04-28 18:10 | Outpatient (REF) | payer OTHER, MEDICAID, SELFPAY ==
[2022-04-28 18:26] LABS: WBC 20-50 HPF (0-5)
[2022-04-28 18:27] LABS: Bacteria Many HPF (Negative); C & S Indicated? C&S Done As Ordered; Casts Negative LPF (Negative); Crystals Negative HPF (Negative); Epithelial Cells Few HPF (Negative); Mucus Negative (Negative); RBC 0-2 HPF (0-2)
== END 2022-04-28 18:11 | disposition home or self-care (01) ==
LOC: LBN 18:10
PROVIDERS: Visit Provider Urology
DX: N31.9 Neuromuscular dysfunction of bladder, unspecified (principal); R32 Unspecified urinary incontinence; R39.9 Unspecified symptoms and signs involving the genitourinary system
CPT/HCPCS: 87077; 81015; 87086; 87186

== ENCOUNTER → 2022-06-01 01:47 | Outpatient (CLI) | payer MEDICAID, SELFPAY ==
--- NOTE | 2022-06-01 | DI.CT_ITS ---
Exam(s) CT ABDOMEN PELVIS WO EXAM: CT ABDOMEN PELVIS WO CLINICAL HISTORY: NEUROGENIC BLADDER N31.9. TECHNIQUE: Imaging Protocol: Axial computed tomography images with coronal and sagittal reformatted images were created and reviewed. Oral: / no COMPARISON: CT CT CHEST PE ABD PELVIS W from 04/14/2021 FINDINGS: ABDOMEN: Lung Bases: Scarring at lung bases. Heart size normal. Liver: Hepatic steatosis. Moderate enlargement. No measurable mass. Gallbladder and biliary tract: No radiodense calculus or dilation. Pancreas: Normal density, no abnormal calcifications or inflammatory process. Spleen: Normal. Kidneys: Normal size, contour and axis. No radiodense stones or obstructive uropathy. No masses seen. Adrenal glands: No masses seen. Lymph nodes: Within normal limits. Abdominal Aorta: Abdominal portion non-dilated. Stomach and small bowel: Ovoid density seen in duodenum could represent ingested tablet. PELVIS: Bladder: Symmetric distention, . Air bubble presumably related to catheterization. No wall thickenin g. No evidence of calcifications or debris. No mass visible. Bowel: Moderate to large quantity of stool. No obstruction or bowel wall thickening. Peritoneal cavity: No ascites, collection or mesenteric inflammatory response. Reproductive organs: Within normal limits. Bones: Within normal limits. IMPRESSION: Urinary bladder has a normal appearance. Air bubble presumed related to catheterization. RADIATION DOSE DELIVERED: 916.22mGy.cm Total DLP DATA REPOSITORY: All CT scans at this facility are submitted to the National Radiology Data Registry (NRDR) Dose Index Registry (DIR) with the [employer] (ACR). RADIATION OPTIMIZATION: All CT scans at this facility use at least one of these dose optimization te chniques: automated exposure control; mA and/or kV adjustment per patient size (includes targeted exa ms where dose is matched to clinical indication); or iterative reconstruction.
== END ==
PROVIDERS: PCP Nurse Practitioner Family; Visit Provider Urology
DX: N31.8 Other neuromuscular dysfunction of bladder (principal); K76.0 Fatty (change of) liver, not elsewhere classified; R16.0 Hepatomegaly, not elsewhere classified
CPT/HCPCS: 74176

== ENCOUNTER 2022-06-07 15:23 | Outpatient (REF) | payer MEDICAID, SELFPAY | END 2022-06-07 15:24 | disposition home or self-care (01) | LOC: LBN 15:23 | PROVIDERS: PCP Nurse Practitioner Family | DX: R39.9 Unspecified symptoms and signs involving the genitourinary system (principal) | CPT/HCPCS: 87077; 87086; 87186 ==

== ENCOUNTER 2022-07-31 14:24 | Outpatient (REF) | payer MEDICAID, SELFPAY | END 2022-07-31 14:25 | disposition home or self-care (01) | LOC: LBN 14:24 | PROVIDERS: PCP Nurse Practitioner Family; Visit Provider Nurse Practitioner Family | DX: R32 Unspecified urinary incontinence (principal); Z78.9 Other specified health status | CPT/HCPCS: 87086 ==

== ENCOUNTER 2022-08-21 10:17 | Outpatient (REF) | payer MEDICAID, SELFPAY | END 2022-08-21 10:18 | disposition home or self-care (01) | LOC: LBN 10:17 | PROVIDERS: PCP Nurse Practitioner Family; Visit Provider Urology | DX: R39.9 Unspecified symptoms and signs involving the genitourinary system (principal) | CPT/HCPCS: 87077; 87086; 87186 ==

== ENCOUNTER 2022-10-13 18:18 | Outpatient (REF) | payer MEDICAID, SELFPAY | END 2022-10-13 18:19 | disposition home or self-care (01) | LOC: LBN 18:18 | PROVIDERS: PCP Nurse Practitioner Family; Visit Provider Nurse Practitioner Family | DX: R39.89 Other symptoms and signs involving the genitourinary system (principal) | CPT/HCPCS: 87077; 87086; 87186 ==

== ENCOUNTER 2022-11-02 18:15 | Outpatient (REF) | payer MEDICAID, SELFPAY ==
[2022-11-02 14:27] LABS: Bilirubin Negative (Negative); Blood Trace-intact (Negative); Clarity Clear (Clear); Glucose Negative (Negative); Ketones Negative (Negative); Leukocyte Esterase Small (Negative); Nitrite Negative (Negative); Specific Gravity 1.015 (1.005-1.025); Urobilinogen 0.2 mg/dL (Up to 0.2)
[2022-11-02 14:51] LABS: Bacteria Few HPF (Negative); C & S Indicated? Yes; Casts Negative LPF (Negative); Crystals Negative HPF (Negative); Epithelial Cells Rare HPF (Negative); Mucus Negative (Negative); Other Cells Negative (Negative)
== END 2022-11-02 18:16 | disposition home or self-care (01) ==
LOC: LBN 18:15
PROVIDERS: PCP Nurse Practitioner Family; Visit Provider Nurse Practitioner Family
DX: R30.0 Dysuria (principal); R82.998 Other abnormal findings in urine
CPT/HCPCS: 81003; 81015; 87086

== ENCOUNTER 2023-03-02 19:00 | Outpatient (REF) | payer MEDICAID, SELFPAY ==
[2023-03-02 22:18] LABS: Bilirubin Negative (Negative); Blood Negative (Negative); Clarity Clear (Clear); Glucose Negative (Negative); Ketones Negative (Negative); Leukocyte Esterase Negative (Negative); Nitrite Negative (Negative); Urobilinogen 0.2 mg/dL (Up to 0.2); pH 5.5 (5-8)
== END 2023-03-02 19:01 | disposition home or self-care (01) ==
LOC: LBN 19:00
PROVIDERS: PCP Nurse Practitioner Family; Visit Provider Family Medicine
DX: N39.0 Urinary tract infection, site not specified (principal)
CPT/HCPCS: 81003

== ENCOUNTER → 2023-09-27 12:46 | Outpatient (CLI) | payer MEDICAID, SELFPAY ==
--- NOTE | 2023-09-27 12:30 | DI.US_ITS ---
Exam(s) US LOWER EXTREMITY VENOUS LT EXAM: US LOWER EXTREMITY VENOUS LT CLINICAL HISTORY: leg swelling, left,paralyzed,? dvt, m79.89. TECHNIQUE: Lower extremity venous ultrasound performed using grayscale, color-flow, and spectral Do ppler analysis. COMPARISON: No exams were available for comparison FINDINGS: The common femoral, femoral and popliteal veins demonstrate normal compressibility, augmentation, and color Doppler. The posterior tibial veins are patent. No saphenous vein thrombosis or other superfi cial venous thrombosis is seen. No hematoma or Aldridge's cyst is seen. IMPRESSION: Negative lower extremity ultrasound. No evidence of DVT. DATA REPOSITORY:
--- NOTE | 2023-09-27 15:24 | DI.RAD_ITS ---
Exam(s) XR TIB/FIB LT XR FOOT LT COMPLETE XR ANKLE LT COMPLETE EXAM: XR TIB/FIB LT CLINICAL HISTORY: left leg swelling,m79.89. TECHNIQUE: 2D digital imaging was performed. Two views of the leg. Three views of the ankle. Thre e views of the foot.. COMPARISON: CR XR FOOT LT COMPLETE from 09/27/2023 CR XR ANKLE LT COMPLETE from 09/27/2023 FINDINGS: BONES: No acute fracture is present. No bony destructive lesion is seen. Bones appear osteoporotic. The knee and ankle joints are unremarkable. No ankle mortise widening. SOFT TISSUE: Soft tissue swelling over dorsum of foot and medial malleolus.. IMPRESSION: Osteoporosis. Soft tissue swelling. No bone acute abnormality. DATA REPOSITORY: RADIATION DOSE DELIVERED:
== END ==
PROVIDERS: PCP Nurse Practitioner Family; Visit Provider Physician Assistant
DX: M79.89 Other specified soft tissue disorders (principal)
CPT/HCPCS: 73590; 73610; 73630; 93971

== ENCOUNTER 2023-12-08 13:07 | Outpatient (CLI) | payer MEDICAID, SELFPAY ==
[2023-12-08 13:25] LABS: Hemoglobin A1C 5.4 % (<5.7)
[2023-12-08 13:53] LABS: Calculated LDL 95 mg/dL (<100); Cholesterol 188 mg/dL (<200); HDL Cholesterol 72 mg/dL (40-60); TSH (W/Ref FT4) 3.34 uIU/mL (0.36-3.74); Triglyceride 106 mg/dL (<150)
== END 2023-12-08 13:08 | disposition home or self-care (01) ==
LOC: LBO 13:08
PROVIDERS: PCP Nurse Practitioner Family; Visit Provider Nurse Practitioner Family
DX: Z13.1 Encounter for screening for diabetes mellitus (principal); Z13.29 Encounter for screening for other suspected endocrine disorder; Z13.220 Encounter for screening for lipoid disorders
CPT/HCPCS: 36415; 80061; 83036; 84443

== ENCOUNTER 2024-06-26 16:30 | Outpatient (REF) | payer MEDICAID, SELFPAY | END 2024-06-26 16:31 | disposition home or self-care (01) | LOC: LBN 16:30 | PROVIDERS: PCP Nurse Practitioner Family; Visit Provider Nurse Practitioner Family | DX: N39.0 Urinary tract infection, site not specified (principal) | CPT/HCPCS: 87077; 87086; 87186 ==

== ENCOUNTER 2024-08-08 00:59 | Outpatient (CLI) | payer MEDICAID, SELFPAY ==
[2024-08-08 12:24] LABS: Abs Immature Grans 0.04 10^3/uL (0.0-0.06); Absolute Basophil Count 0.05 10^3/uL (0.0-0.2); Absolute Eosinophil Count 0.17 10^3/uL (0.0-0.7); Absolute Lymphocyte Count 1.42 10^3/uL (1.2-3.4); Absolute Monocyte Count 0.49 10^3/uL (0.1-0.8); Absolute Neutrophil Count 4.37 10^3/uL (1.2-6.7); Basophils % 0.8 %; Eosinophils % 2.6 %; HCT 41.2 % (36.0-46.0); HGB 13.5 g/dL (11.2-15.7); Immature Grans % 0.6 %; Lymphocytes % 21.7 %; MCH 30.1 pg (27.0-33.0); MCHC 32.8 % (32.0-36.0); MCV 92 fL (80-95); MPV 8.9 fL (8.0-11.0); Monocytes % 7.5 %; Neutrophils % 66.8 %; Platelet Count 280 10^3/uL (130-400); RBC 4.49 10^6/uL (3.93-5.22); RDW 13.2 % (11.7-14.6); RDW-SD 45.1 fL; WBC 6.54 10^3/uL (4.4-10.8)
[2024-08-08 12:45] LABS: ALT 107 U/L (14-59); AST 31 U/L (15-37); Albumin 3.7 g/dL (3.4-5.0); Alkaline Phosphatase 74 U/L (46-116); Anion Gap 8.4 mmol/L (3-11); BUN 9 mg/dL (7-18); Bilirubin, Total 0.31 mg/dL (0.2-1.0); CO2 26.6 mmol/L (21.0-32.0); CREATININE 0.6 mg/dL (0.55-1.02); Calcium 9.3 mg/dL (8.5-10.1); Chloride 104 mmol/L (98-107); Estimated GFR 110.65 (mL/min/1.73m2); Glucose 103 mg/dL (74-106); Potassium 3.6 mmol/L (3.5-5.1); Sodium 139 mmol/L (136-145)
== END 2024-08-08 01:00 | disposition home or self-care (01) ==
LOC: LOS 00:59
PROVIDERS: PCP Nurse Practitioner Family; Visit Provider Nurse Practitioner Family
DX: R50.9 Fever, unspecified (principal)
CPT/HCPCS: 36415; 80053; 85025

== ENCOUNTER 2024-12-19 21:13 | Outpatient (REF) | payer MEDICAID, SELFPAY ==
[2024-12-19 22:05] LABS: Abs Immature Grans 0.05 10^3/uL (0.0-0.06); Absolute Basophil Count 0.05 10^3/uL (0.0-0.2); Absolute Eosinophil Count 0.05 10^3/uL (0.0-0.7); Absolute Lymphocyte Count 0.91 10^3/uL (1.2-3.4); Absolute Monocyte Count 0.69 10^3/uL (0.1-0.8); Basophils % 0.7 %; Eosinophils % 0.7 %; HCT 41.4 % (36.0-46.0); HGB 13.8 g/dL (11.2-15.7); Immature Grans % 0.7 %; Lymphocytes % 13.1 %; MCH 30.5 pg (27.0-33.0); MCHC 33.3 % (32.0-36.0); MCV 92 fL (80-95); MPV 9.3 fL (8.0-11.0); Monocytes % 9.9 %; Neutrophils % 74.9 %; Platelet Count 226 10^3/uL (130-400); RBC 4.52 10^6/uL (3.93-5.22); RDW 13.1 % (11.7-14.6); RDW-SD 44.1 fL; WBC 6.95 10^3/uL (4.4-10.8)
[2024-12-19 22:10] LABS: ALT 73 U/L (14-59); AST 29 U/L (15-37); Albumin 3.9 g/dL (3.4-5.0); Alkaline Phosphatase 81 U/L (46-116); Anion Gap 8.2 mmol/L (3-11); BUN 6 mg/dL (7-18); Bilirubin, Total 0.3 mg/dL (0.2-1.0); CO2 27.8 mmol/L (21.0-32.0); CREATININE 0.6 mg/dL (0.55-1.02); Calcium 9.2 mg/dL (8.5-10.1); Chloride 103 mmol/L (98-107); Estimated GFR 110.65 (mL/min/1.73m2); Glucose 109 mg/dL (74-106); Potassium 4.2 mmol/L (3.5-5.1); Sodium 139 mmol/L (136-145); Total Protein 7.5 g/dL (6.4-8.2)
[2024-12-21 09:53] LABS: Lyme Ab w Rflx to Lyme Confirm Negative (Negative)
[2024-12-22 14:55] LABS: ANA Interpretation Positive (Negative)
[2024-12-23 11:58] LABS: Anaplasma phagocytophilum Negative (Negative); B. miyamotoi PCR Negative (Negative); Babesia divergens/MO-1 Negative (Negative); Babesia duncani Negative (Negative); Babesia microti Negative (Negative); Ehrlichia chaffeensis Negative (Negative); Ehrlichia ewingii/canis Negative (Negative); Ehrlichia muris eauclairensis Negative (Negative)
== END 2024-12-19 21:14 | disposition home or self-care (01) ==
LOC: LBN 21:13
PROVIDERS: Visit Provider Nurse Practitioner Family
DX: R50.9 Fever, unspecified (principal)
CPT/HCPCS: 80053; 87798; 85025; 86038; 86618